=== PATIENT | male | born 1985 | race Caucasian/White ===

== ENCOUNTER 2017-11-10 07:32 | Outpatient (CLI) | payer OTHER, SELFPAY ==
--- NOTE | 2017-11-10 08:30 | DI.CT_ITS ---
SYMPTOMS/DIAGNOSIS: BURNING ABD PAIN BELOW UMBILICUS CT OF THE ABDOMEN AND PELVIS: Comparison is made with [id number]. Images were performed from the lung bases through the ischial tuberosities after IV and oral contrast. The lung bases are clear. The heart size is normal. The liver, gallbladder, spleen, pancreas, adrenals and kidneys appear normal. The appendix is well seen and appears normal. There is no bowel dilatation or acute inflammatory changes. There is fat seen within the submucosa of the colon and terminal ileum. The findings could be associated with a history of inflammatory bowel disease or may be a normal finding related to obesity. No umbilical or abdominal wall hernias are seen. There is no evidence of an inguinal hernia. The bladder and prostate are unremarkable. There are few scattered small mesenteric lymph nodes. No abnormally enlarged lymph nodes are identified. IMPRESSION: No acute abnormality.
[2017-11-10] MEDS: Omnipaque 350 MG/ML 50 ML BTL IJ (08:59)
[2017-11-10] MEDS: Breeza Beverage 473 ML BTL PO (09:00)
[2017-11-10] MEDS: Omnipaque 350 MG/ML 100 ML BTL IJ (09:02)
== END 2017-11-10 07:52 ==
PROVIDERS: PCP Nurse Practitioner; Visit Provider Nurse Practitioner
DX: R10.33 Periumbilical pain (principal)
CPT/HCPCS: 74177; J3490; Q9967

== ENCOUNTER 2017-11-11 15:11 | Outpatient (CLI) | payer OTHER, SELFPAY ==
[2017-11-11 15:42] LABS: HCT 44.4 % (40.0-50.0); Mean Corp. HGB Concentration 33.8 g/dL (32.0-36.0); Mean Corpuscular Hemoglobin 30.5 pg (27.0-33.0); Mean Corpuscular Volume 90.2 fL (80-95); Platelet Count 278 x1000/uL (130-400); RBC 4.92 m/cumm (4.50-6.00); RBC Distribution Width 12.3 % (11.8-14.1); White Blood Cell Count 7.25 k/cumm (4.4-10.8)
[2017-11-11 15:50] LABS: ALT 27 U/L (12-78); AST 11 U/L (15-37); Albumin 4.2 g/dL (3.4-5.0); Alkaline Phosphatase 58 U/L (46-116); BUN 11 mg/dL (7-18); Bilirubin, Total 0.3 mg/dL (0.2-1.0); CREATININE 0.97 mg/dL (0.70-1.30); Calcium 9.3 mg/dL (8.5-10.1); Chloride 101 mmol/L (98-107); Glucose 85 mg/dL (70-100); Lipase 84 U/L (73-393); Potassium 3.6 mmol/L (3.5-5.1); Sodium 137 mmol/L (136-145); Total Protein 8.3 g/dL (6.4-8.2)
== END 2017-11-11 15:31 ==
PROVIDERS: PCP Nurse Practitioner; Visit Provider Nurse Practitioner
DX: R10.9 Unspecified abdominal pain (principal)
CPT/HCPCS: 80053; 83690; 85027

== ENCOUNTER 2018-02-10 10:51 | Day surgery (SDC) | payer OTHER, SELFPAY ==
[2018-02-10 11:07] VITALS: BP 121/77; PULSE 98; RESP 18; TEMP 36.6; O2SAT 99
[2018-02-10] MEDS: Lactated Ringers 1,000 ML 30 ML IV ×2 (11:37→13:54)
--- NOTE | 2018-02-10 13:06 | STOM_PTH ---
PATIENT: Oskar Cruz LOC: [facility] U#:[id number] AGE/SX: 32/M ROOM: RE02/10/[address]: Inocencio Sewell DO : 1985 BED: DIS: 02/10/2018 SPEC #: [id number] RECD: 02/10/18 16:05 STATUS: MAULIK [facility] #: [id number] AMARI: 02/10/18 13:[address]: Inocencio Sewell DEPT: Surgical Specimen RECD BY: Roberta Gregory ENTERED: 02/10/18 16:09 SP TYPE: STOMACH OTHR DR: Casie Chandler APRN Tissues: 1 - BIOPSY BOWEL 2 - STOMACH BIOPSY 3 - BIOPSY BOWEL 4 - BIOPSY BOWEL 5 - BIOPSY BOWEL Procedures: GROSS AND MICRO LEVEL 4 IMMUNOPEROXIDASE STAIN Comments: [id number]
--- NOTE | 2018-02-10 14:01 | ENDO_ITS ---
Date of service: 02/10/18 Time of Service: 14:00 Endoscopy Report DATE OF PROCEDURE: 02/10/18 PRE-OP DIAGNOSIS: Abdominal pain with nausea, vomiting, and weight loss POST-OP DIAGNOSIS: other PROCEDURE: 1. Esophagogastroduodenoscopy with biopsies and cold forceps 2. Colonoscopy with biopsy by cold forceps SURGEON: Inocencio Sewell ANESTHESIA: MAC (Jerrica Higgins CRNA; ASA 2 Mallampati class II) ESTIMATED BLOOD LOSS: 2 PATHOLOGY: other (1. Duodenal biopsies 2. Gastric antral biopsies 3. Random terminal ileal biopsies 4. Random colon biopsies 5. Random rectal biopsies) COMPLICATIONS: None DISPOSITION: same day INDICATIONS: 32-year-old male referred for about three month's worth of abdominal pain. Reports a dull mostly lower abdomen pain that is intermittent, and associated with nausea and vomiting. He also reports a change in bowel habits from having regular bowel movement daily to now 1 every 5 days, or several bowel movements every 5 days. He describes the abdominal pain is dull achy. The nausea usually precedes the vomiting. He has also noted a weight loss over the last year. PREP: Miralax/Dulcolax PROCEDURE START TIME: 14:25 PROCEDURE END TIME: 14:45 COLONOSCOPY RETRACTION TIME: 15 FINDINGS: In examining the upper gastrointestinal tract from the oropharynx to the third portion duodenum, the duodenum appeared to have blunted microvilli present with some contact friability of the tissue. There were shallow ulcerations seen in the gastric antrum. The Z line appeared normal. In watching the soft his contract appears that he has a small sliding hernia 1-2 cm present. The colonoscopy exam of the colon from cecum to anus, and included a small portion of the terminal ileum. No gross abnormalities were seen during the colonoscopy random biopsies were taken from the terminal ileum, colon, and rectum. PROCEDURE DESCRIPTION: The patient was brought to the procedure room. Monitoring for telemetry, end- tidal CO2, O2 saturation, blood pressure were applied. An appropriate timeout was taken reviewing the patient's identification, allergies, medications,and procedure. Sedation was titrated for effect by the BEVERAGE INSPECTION MACHINE TENDER. The upper endoscopy was performed first. An Olympus variable stiffness endoscope was advanced from the oropharynx to the third portion of the duodenum without difficulty. The scope was then withdrawn in circumferential manner from the duodenum back to the oropharynx. In performing withdrawal of the scope , the duodenum appeared to have some contact friability along with blunting of the microvilli. Multiple biopsies were taken from the duodenum. The scope was then withdrawn into the stomach the gastric antrum appeared to have several ulcerations present and multiple biopsies were taken which were submitted for pathology. The scope was then retroflexed in the stomach lesser curvature, greater curvature, anterior, and posterior surfaces all appear grossly normal. The scope was then withdrawn to the GE junction, and Z line appeared normal. There was a small sliding hiatal hernia noted 1-2 cm. I withdrew the scope through the remainder of the esophagus all which appear grossly normal. Scope was then withdrawn terminating the upper endoscopy. The patient was then repositioned for colonoscopy. Sedation was titrated for effect again. Once adequate sedation was achieved, I performed a inspection of the external perineum, and a digitial rectal examination. No significant external abnormalities were noted. On digital rectal examination, there was no blood, no masses, good rectal tone. I advanced the colonoscope from the anus to the cecum under direct visualization. The cecum was identified by the ileal-cecal valve, and the appendiceal orifice. The terminal ileum was intubated for approximately 15-20 cm, and appeared grossly normal. Biopsies were then taken from the terminal ileum, randomly. Scope was then withdrawn back into the cecum. The scope then was withdrawn in circumferential manner from the cecum to the rectum. Random biopsies were taken throughout the colon and submitted for pathology. No gross abnormalites were noted in the colon. The scope was then withdrawn into the rectum, and retroflexed. Again, random biopsies were taken throughout the rectum which was subsequently submitted for pathology. No gross abnormalities were noted of the rectum or anorectal junction. The scope was then withdrawn, terminating the procedure. There were no complications during the procedure, and the patient tolerated the procedure well. The patient was returned to the day surgery recovery area in good condition. Plan: We will start Oskar on omeprazole today while awaiting pathology results. Further recommendations are pending pathology
[2018-02-10 14:28] VITALS: BP 109/73; PULSE 52; RESP 16; TEMP 37; O2SAT 97
--- NOTE | 2018-02-10 14:41 | PDOC.DSDIS_ITS ---
Discharge Plan Disposition Patient Disposition: HOME Condition: Good Discharge Details Reason For Visit: ABDOMINAL PAIN / N/V Attending Provider: Inocencio Sewell Primary Care Provider: Casie Chandler Home Meds and New Rx's Prescriptions: New omeprazole 40 mg capsule,delayed release(DR/EC) 40 mg PO DAILY Qty: 30 RF: 3 Continue gabapentin 800 mg Tablet 800 mg PO HS RF: 0 gabapentin 800 mg tablet 400 mg PO DAILY RF: 0 Discontinued lorazepam 1 mg tablet 1 mg PO BID PRN (Reason: fear flying) Qty: 5 RF: 0 lorazepam 1 mg tablet 1 mg PO ONCE Qty: 1 RF: 0 polyethylene glycol 3350 [Miralax] 17 gram/dose powder 255 gm PO ONCE Qty: 255 RF: 0 bisacodyl [Dulcolax (bisacodyl)] 5 mg tablet,delayed release (DR/EC) 10 mg PO BID Qty: 4 RF: 0 Discharge Instructions Instructions: Colonoscopy (DC), Upper Endoscopy (DC) Stand Alone Forms: Colonoscopy Post Instructions, DSU Post EGD Instructions, Ignacio Naik (DSU) Activity:: Activity as Tolerated Diet:: As Tolerated Discharge Orders Discharge Orders: Discharge Order (Routine); Ordered 02/10/18 Ordered By: Inocencio Sewell DS: Diagnosis Discharge Diagnosis (1) Abdominal pain: Status: Acute Asessment and Plan: Upper and lower endoscopy performed: Endoscopy Report DATE OF PROCEDURE: 02/10/18 PRE-OP DIAGNOSIS: Abdominal pain with nausea, vomiting, and weight loss POST-OP DIAGNOSIS: other PROCEDURE: 1. Esophagogastroduodenoscopy with biopsies and cold forceps 2. Colonoscopy with biopsy by cold forceps SURGEON: Inocencio Sewell ANESTHESIA: MAC (Jerrica Higgins CRNA; ASA 2 Mallampati class II) ESTIMATED BLOOD LOSS: 2 PATHOLOGY: 1. Duodenal biopsies 2. Gastric antral biopsies 3. Random terminal ileal biopsies 4. Random colon biopsies 5. Random rectal biopsies COMPLICATIONS: None DISPOSITION: same day INDICATIONS: 32-year-old male referred for about three month's worth of abdominal pain. Reports a dull mostly lower abdomen pain that is intermittent, and associated with nausea and vomiting. He also reports a change in bowel habits from having regular bowel movement daily to now 1 every 5 days, or several bowel movements every 5 days. He describes the abdominal pain is dull achy. The nausea usually precedes the vomiting. He has also noted a weight loss over the last year. PREP: Miralax/Dulcolax PROCEDURE START TIME: 14:25 PROCEDURE END TIME: 14:45 COLONOSCOPY RETRACTION TIME: 15 FINDINGS: In examining the upper gastrointestinal tract from the oropharynx to the third portion duodenum, the duodenum appeared to have blunted microvilli present with some contact friability of the tissue. There were shallow ulcerations seen in the gastric antrum. The Z line appeared normal. In watching the soft his contract appears that he has a small sliding hernia 1-2 cm present. The colonoscopy exam of the colon from cecum to anus, and included a small portion of the terminal ileum. No gross abnormalities were seen during the colonoscopy random biopsies were taken from the terminal ileum, colon, and rectum. PROCEDURE DESCRIPTION: The patient was brought to the procedure room. Monitoring for telemetry, end- tidal CO2, O2 saturation, blood pressure were applied. An appropriate timeout was taken reviewing the patient's identification, allergies, medications,and procedure. Sedation was titrated for effect by the CLUBHOUSE MANAGER. The upper endoscopy was performed first. An Olympus variable stiffness endoscope was advanced from the oropharynx to the third portion of the duodenum without difficulty. The scope was then withdrawn in circumferential manner from the duodenum back to the oropharynx. In performing withdrawal of the scope , the duodenum appeared to have some contact friability along with blunting of the microvilli. Multiple biopsies were taken from the duodenum. The scope was then withdrawn into the stomach the gastric antrum appeared to have several ulcerations present and multiple biopsies were taken which were submitted for pathology. The scope was then retroflexed in the stomach lesser curvature, greater curvature, anterior, and posterior surfaces all appear grossly normal. The scope was then withdrawn to the GE junction, and Z line appeared normal. There was a small sliding hiatal hernia noted 1-2 cm. I withdrew the scope through the remainder of the esophagus all which appear grossly normal. Scope was then withdrawn terminating the upper endoscopy. The patient was then repositioned for colonoscopy. Sedation was titrated for effect again. Once adequate sedation was achieved, I performed a inspection of the external perineum, and a digitial rectal examination. No significant external abnormalities were noted. On digital rectal examination, there was no blood, no masses, good rectal tone. I advanced the colonoscope from the anus to the cecum under direct visualization. The cecum was identified by the ileal-cecal valve, and the appendiceal orifice. The terminal ileum was intubated for approximately 15-20 cm, and appeared grossly normal. Biopsies were then taken from the terminal ileum, randomly. Scope was then withdrawn back into the cecum. The scope then was withdrawn in circumferential manner from the cecum to the rectum. Random biopsies were taken throughout the colon and submitted for pathology. No gross abnormalites were noted in the colon. The scope was then withdrawn into the rectum, and retroflexed. Again, random biopsies were taken throughout the rectum which was subsequently submitted for pathology. No gross abnormalities were noted of the rectum or anorectal junction. The scope was then withdrawn, terminating the procedure. There were no complications during the procedure, and the patient tolerated the procedure well. The patient was returned to the day surgery recovery area in good condition. Plan: We will start Oskar on omeprazole today while awaiting pathology results. Further recommendations are pending pathology
== END 2018-02-10 14:45 | disposition home or self-care (01) ==
PROVIDERS: PCP Nurse Practitioner; Visit Provider Surgery
PROC: (CPT 43239; principal; 2018-02-10 12:45)
DX: R10.9 Unspecified abdominal pain (principal); R11.2 Nausea with vomiting, unspecified; R63.4 Abnormal weight loss; K29.60 Other gastritis without bleeding; K62.89 Other specified diseases of anus and rectum; K44.9 Diaphragmatic hernia without obstruction or gangrene
CPT/HCPCS: 43239; 45380; 88305; 88361

== ENCOUNTER 2018-03-16 12:37 | Outpatient (CLI) | payer OTHER, SELFPAY ==
[2018-03-20 13:54] LABS: TB Interpretation Negative (NEGAT); TB1 Ag minus Nil 0.03 IU/mL; TB2 Ag minus Nil 0.01 IU/mL
== END 2018-03-16 12:57 ==
PROVIDERS: PCP Nurse Practitioner; Visit Provider Surgery
DX: K29.60 Other gastritis without bleeding (principal)
CPT/HCPCS: 36415; 86480

== ENCOUNTER 2018-04-27 09:38 | Outpatient (CLI) | payer OTHER, SELFPAY ==
[2018-04-27 13:18] LABS: Abs Immature Grans 0.02 k/cumm (0.0-0.09); Absolute Basophil Count 0.03 k/cumm (0.0-0.2); Absolute Eosinophil Count 0.06 k/cumm (0.0-0.7); Absolute Lymphocyte Count 2.28 k/cumm (1.2-3.4); Absolute Monocyte Count 0.64 k/cumm (0.11-0.7); Absolute Neutrophil Count 7.55 k/cumm (1.2-6.7); Basophils % 0.3; Eosinophils % 0.6; HCT 45.2 % (40.0-50.0); HGB 15.5 g/dL (13.5-17.5); Immature Grans % 0.2; Lymphocytes % 21.6; Mean Corp. HGB Concentration 34.3 g/dL (32.0-36.0); Mean Corpuscular Hemoglobin 30.6 pg (27.0-33.0); Mean Corpuscular Volume 89.3 fL (80-95); Mean Platelet Volume 9.3 fL (8.0-11.0); Neutrophils % 71.3; Platelet Count 281 x1000/uL (130-400); RBC 5.06 m/cumm (4.50-6.00); RBC Distribution Width 12.5 % (11.8-14.1); White Blood Cell Count 10.58 k/cumm (4.4-10.8)
[2018-04-27 14:36] LABS: ALT 19 U/L (12-78); AST 13 U/L (15-37); Albumin 4.4 g/dL (3.4-5.0); Alkaline Phosphatase 51 U/L (46-116); Bilirubin, Direct 0.14 mg/dL (0.00-0.20); Bilirubin, Total 0.5 mg/dL (0.2-1.0); C-Reactive Protein 0.14 mg/dL (0.0-0.3); Total Protein 8.1 g/dL (6.4-8.2)
== END 2018-04-27 09:58 ==
PROVIDERS: PCP Nurse Practitioner; Visit Provider Internal Medicine
DX: K50.00 Crohn's disease of small intestine without complications (principal)
CPT/HCPCS: 36415; 80076; 85025; 86140

== ENCOUNTER 2018-05-23 01:42 | Outpatient (RCR) | payer OTHER, SELFPAY ==
[2018-05-10 12:38] LABS: Abs Immature Grans 0.01 k/cumm (0.0-0.09); Absolute Basophil Count 0.03 k/cumm (0.0-0.2); Absolute Eosinophil Count 0.11 k/cumm (0.0-0.7); Absolute Neutrophil Count 5.93 k/cumm (1.2-6.7); Basophils % 0.3; Eosinophils % 1.2; HCT 45.6 % (40.0-50.0); HGB 15.6 g/dL (13.5-17.5); Immature Grans % 0.1; Lymphocytes % 26.4; Mean Corp. HGB Concentration 34.2 g/dL (32.0-36.0); Mean Corpuscular Hemoglobin 30.6 pg (27.0-33.0); Mean Corpuscular Volume 89.4 fL (80-95); Mean Platelet Volume 9.5 fL (8.0-11.0); Monocytes % 6.6; Neutrophils % 65.4; Platelet Count 284 x1000/uL (130-400); RBC Distribution Width 12.7 % (11.8-14.1); White Blood Cell Count 9.08 k/cumm (4.4-10.8)
[2018-05-10 12:48] LABS: ALT 25 U/L (12-78); AST 12 U/L (15-37); Albumin 4.4 g/dL (3.4-5.0); Alkaline Phosphatase 54 U/L (46-116); Bilirubin, Direct 0.13 mg/dL (0.00-0.20); Bilirubin, Total 0.5 mg/dL (0.2-1.0); C-Reactive Protein 0.12 mg/dL (0.0-0.3)
[2018-05-23 09:55] LABS: Abs Immature Grans 0.02 k/cumm (0.0-0.09); Absolute Basophil Count 0.04 k/cumm (0.0-0.2); Absolute Eosinophil Count 0.26 k/cumm (0.0-0.7); Absolute Lymphocyte Count 2.01 k/cumm (1.2-3.4); Absolute Monocyte Count 1.02 k/cumm (0.11-0.7); Absolute Neutrophil Count 5.66 k/cumm (1.2-6.7); Basophils % 0.4; Eosinophils % 2.9; HCT 43.7 % (40.0-50.0); HGB 14.9 g/dL (13.5-17.5); Immature Grans % 0.2; Lymphocytes % 22.3; Mean Corp. HGB Concentration 34.1 g/dL (32.0-36.0); Mean Corpuscular Volume 90.9 fL (80-95); Mean Platelet Volume 9.4 fL (8.0-11.0); Monocytes % 11.3; Neutrophils % 62.9; Platelet Count 263 x1000/uL (130-400); RBC 4.81 m/cumm (4.50-6.00); RBC Distribution Width 12.8 % (11.8-14.1); White Blood Cell Count 9.01 k/cumm (4.4-10.8)
[2018-05-23 10:17] LABS: ALT 27 U/L (12-78); AST 11 U/L (15-37); Albumin 4.2 g/dL (3.4-5.0); Alkaline Phosphatase 45 U/L (46-116); Bilirubin, Direct 0.16 mg/dL (0.00-0.20); Bilirubin, Total 0.5 mg/dL (0.2-1.0); C-Reactive Protein 0.12 mg/dL (0.0-0.3); Total Protein 7.6 g/dL (6.4-8.2)
== END 2018-06-04 23:59 | disposition home or self-care (01) ==
LOC: INF 01:42
PROVIDERS: PCP Nurse Practitioner; Visit Provider Internal Medicine
DX: K50.00 Crohn's disease of small intestine without complications (principal)
CPT/HCPCS: 36415; 80076; 85025; 86140

== ENCOUNTER 2018-06-27 11:30 | Outpatient (RCR) | payer OTHER, SELFPAY ==
[2018-06-07 12:01] LABS: Abs Immature Grans 0.01 k/cumm (0.0-0.09); Absolute Basophil Count 0.02 k/cumm (0.0-0.2); Absolute Eosinophil Count 0.16 k/cumm (0.0-0.7); Absolute Monocyte Count 0.66 k/cumm (0.11-0.7); Absolute Neutrophil Count 5.92 k/cumm (1.2-6.7); Basophils % 0.2; Eosinophils % 1.7; HCT 45.7 % (40.0-50.0); HGB 15.7 g/dL (13.5-17.5); Immature Grans % 0.1; Lymphocytes % 28.5; Mean Corp. HGB Concentration 34.4 g/dL (32.0-36.0); Mean Corpuscular Hemoglobin 30.5 pg (27.0-33.0); Mean Corpuscular Volume 88.7 fL (80-95); Mean Platelet Volume 9.5 fL (8.0-11.0); Neutrophils % 62.5; Platelet Count 269 x1000/uL (130-400); RBC 5.15 m/cumm (4.50-6.00); RBC Distribution Width 12.4 % (11.8-14.1); White Blood Cell Count 9.47 k/cumm (4.4-10.8)
[2018-06-07 12:25] LABS: ALT 21 U/L (12-78); AST 10 U/L (15-37); Albumin 4.5 g/dL (3.4-5.0); Alkaline Phosphatase 55 U/L (46-116); Bilirubin, Direct 0.15 mg/dL (0.00-0.20); Bilirubin, Total 0.5 mg/dL (0.2-1.0); Total Protein 8.4 g/dL (6.4-8.2)
[2018-06-21 12:43] LABS: Abs Immature Grans 0.01 k/cumm (0.0-0.09); Absolute Basophil Count 0.03 k/cumm (0.0-0.2); Absolute Eosinophil Count 0.09 k/cumm (0.0-0.7); Absolute Lymphocyte Count 2.19 k/cumm (1.2-3.4); Absolute Monocyte Count 0.75 k/cumm (0.11-0.7); Absolute Neutrophil Count 4.35 k/cumm (1.2-6.7); Basophils % 0.4; Eosinophils % 1.2; HCT 41.8 % (40.0-50.0); HGB 14.4 g/dL (13.5-17.5); Immature Grans % 0.1; Lymphocytes % 29.5; Mean Corp. HGB Concentration 34.4 g/dL (32.0-36.0); Mean Corpuscular Hemoglobin 30.4 pg (27.0-33.0); Mean Corpuscular Volume 88.4 fL (80-95); Mean Platelet Volume 10.2 fL (8.0-11.0); Monocytes % 10.1; Neutrophils % 58.7; Platelet Count 271 x1000/uL (130-400); RBC 4.73 m/cumm (4.50-6.00); RBC Distribution Width 12.4 % (11.8-14.1); White Blood Cell Count 7.42 k/cumm (4.4-10.8)
[2018-06-21 13:00] LABS: ALT 17 U/L (12-78); AST 9 U/L (15-37); Albumin 4.3 g/dL (3.4-5.0); Alkaline Phosphatase 52 U/L (46-116); Bilirubin, Direct 0.12 mg/dL (0.00-0.20); Bilirubin, Total 0.4 mg/dL (0.2-1.0); C-Reactive Protein 0.25 mg/dL (0.0-0.3); Total Protein 7.7 g/dL (6.4-8.2)
[2018-06-27 12:35] LABS: Abs Immature Grans 0.02 k/cumm (0.0-0.09); Absolute Basophil Count 0.03 k/cumm (0.0-0.2); Absolute Eosinophil Count 0.11 k/cumm (0.0-0.7); Absolute Lymphocyte Count 2.28 k/cumm (1.2-3.4); Absolute Monocyte Count 0.79 k/cumm (0.11-0.7); Absolute Neutrophil Count 5.16 k/cumm (1.2-6.7); Basophils % 0.4; Eosinophils % 1.3; HCT 42.7 % (40.0-50.0); HGB 14.4 g/dL (13.5-17.5); Immature Grans % 0.2; Lymphocytes % 27.2; Mean Corp. HGB Concentration 33.7 g/dL (32.0-36.0); Mean Corpuscular Hemoglobin 30.1 pg (27.0-33.0); Mean Corpuscular Volume 89.1 fL (80-95); Mean Platelet Volume 10.3 fL (8.0-11.0); Monocytes % 9.4; Neutrophils % 61.5; Platelet Count 284 x1000/uL (130-400); RBC 4.79 m/cumm (4.50-6.00); RBC Distribution Width 12.4 % (11.8-14.1); White Blood Cell Count 8.39 k/cumm (4.4-10.8)
[2018-06-27 12:41] LABS: ALT 20 U/L (12-78); AST 11 U/L (15-37); Albumin 4.1 g/dL (3.4-5.0); Alkaline Phosphatase 51 U/L (46-116); Bilirubin, Direct 0.07 mg/dL (0.00-0.20); Bilirubin, Total 0.3 mg/dL (0.2-1.0); C-Reactive Protein 0.16 mg/dL (0.0-0.3); Total Protein 7.3 g/dL (6.4-8.2)
[2018-06-27 13:15] LABS: ESR 11 MM/HR (0-15)
[2018-06-29 18:16] LABS: Adalimumab QN with Reflex Ab 9.2 mcg/mL
== END 2018-07-04 23:59 | disposition home or self-care (01) ==
LOC: INF 11:30
PROVIDERS: PCP Nurse Practitioner; Visit Provider Internal Medicine
DX: K50.00 Crohn's disease of small intestine without complications (principal)
CPT/HCPCS: 36415; 80076; 83520; 85652; 85025; 86140

== ENCOUNTER 2018-07-08 13:32 | Emergency (ER) | payer OTHER, SELFPAY ==
[2018-07-08] VITALS (38 sets, daily range): BP systolic 109–124; BP diastolic 59–71; PULSE 57–77; RESP 8–29; TEMP 37; O2SAT 93–100
[2018-07-08] MEDS: LORazepam 1 MG TAB (14:15)
--- NOTE | 2018-07-08 14:17 | ED.GENADUL_ITS ---
Discharge Plan Disposition Patient Disposition: HOME Condition: Improving Discharge Details Chief Complaint: Chest Pain Clinical Impression: Chest pain, atypical Primary Care Provider: Casie Chandler ED Provider: Charlie Metcalf Home Meds and New Rx's Prescriptions: Continued gabapentin 800 mg tablet 800 mg PO BID Qty: 180 RF: 2 omeprazole 40 mg capsule,delayed release(DR/EC) 40 mg PO DAILY Qty: 30 RF: 3 hydroxyzine HCl 10 mg tablet 20 mg PO Q6H PRN (Reason: anxiety) Qty: 60 RF: 0 amoxicillin-pot clavulanate [Augmentin] 875-125 mg tablet 1 tab PO Q12H Qty: 14 RF: 0 Humira 40 mg/0.8 mL syringe kit 40 mg SC Q14D Qty: 2 RF: 5 Discharge Instructions Instructions: Chest Pain (ED) Additional Instructions: Please continue to take your daily prescribed medications as directed and feel free to return to the emergency department for any new or significant worsening of symptoms or change in your symptoms. Otherwise follow-up with your primary care provider for reassessment and possible further outpatient testing which may include cardiac monitoring or stress test. Referrals: Casie Chandler NP [Primary Care Provider] - (Call the office for arrangement of follow-up appointment if not improving.) Discharge Data Discharge Date/Time-TO BE ENTERED AT DEPARTURE: 07/08/18 18:22 Medical Decision Making <Nikko Ramírez MD - Last Filed: 07/08/18 14:17> ECG Data Attestation: I personally reviewed and interpreted this ECG (s) as follows: Prior ECG tracings: not available for review Interpretation: normal sinus rhythm, rate of 92, pr 152, qtc 463 <MARÍA ELENA Fu - Last Filed: 07/08/18 16:08> This is a nontoxic-appearing 32-year-old male presenting with left-sided chest pain and left shoulder pain since 8 AM this morning. Vitals reflect a slight tachypnea. BP and pulse rate stable. Low HEART of two (features and family history of heart disease). EKG shows normal sinus rhythm with a rate of 72. No ectopy or ST changes. Initial blood test reveal a negative troponin and d- dimer. Discussed findings with the patient and recommend 3-hour serial troponin for which she is agreed. <Charlei Metcalf NP - Last Filed: 07/08/18 18:33> Patient presenting to the emergency department for complaint of chest pain. Patient was signed out to me pending second troponin. Patient had improvement o f symptoms after benzodiazepine. Patient reassessed and continued to state improvement of symptoms after review of second negative troponin. Given 2 neg troponins, negative d-dimer, unremarkable labs, no acute findings on chest x- ray, I feel the patient is able to be safely discharged for follow-up with primary care provider for reassessment and possible scheduling of outpatient stress testing and/or cardiac monitoring given the patient does state occasional palpitations. Return precautions discussed. After discussion of diagnosis and plan of care patient has no further needs, questions, or concerns and states clear understanding to return to the emergency department for any worsening symptoms. Lab Data Lab results reviewed: Yes I reviewed the patient's lab results. HPI <Nikko Ramírez MD - Last Filed: 07/08/18 14:17> General Date/Time Provider Initiated Documentation: 07/08/18 13:42 . Related Data Home Medications Medication Instructions Recorded Confirmed gabapentin 800 mg tablet 800 mg PO BID #180 tab 04/17/18 07/08/18 omeprazole 40 mg capsule,delayed 40 mg PO DAILY #30 cap 06/12/18 07/08/18 release hydroxyzine HCl 10 mg tablet 20 mg PO Q6H PRN #60 tab 06/29/18 07/08/18 amoxicillin 875 mg-potassium 1 tab PO Q12H #14 tab 07/06/18 07/08/18 clavulanate 125 mg tablet adalimumab 40 mg/0.8 mL 40 mg SC Q14D #2 syringe 07/07/18 07/08/18 subcutaneous syringe kit Previous Rx's Medication Instructions Recorded gabapentin 800 mg tablet 800 mg PO BID #180 tab 04/17/18 omeprazole 40 mg capsule,delayed 40 mg PO DAILY #30 cap 06/12/18 release hydroxyzine HCl 10 mg tablet 20 mg PO Q6H PRN #60 tab 06/29/18 amoxicillin 875 mg-potassium 1 tab PO Q12H #14 tab 07/06/18 clavulanate 125 mg tablet adalimumab 40 mg/0.8 mL 40 mg SC Q14D #2 syringe 07/07/18 subcutaneous syringe kit Allergies Allergy/AdvReac Type Severity Reaction Status Date / Time No Known Allergies Allergy Verified 07/08/18 13:50 <MARÍA ELENA Fu - Last Filed: 07/08/18 16:08> HPI Narrative: Patient is a 32-year-old male with a significant past medical history of anxiety, Crohn's/colitis, GERD, previous IV drug use, 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 Symptoms at that time self resolved. He woke up this morning and noted return of symptoms along with associated shortness of breath and palpitations. Symptoms today started around 8 AM. He denies any sputum production. No calf pain or swelling. No nausea vomiting. He reports a chronic intermittent left arm numbness secondary to IV drug use. His chest pain related arm pain feels different than baseline arm discomfort. No prior cardiac history. He is on immunosuppression therapy taking Humira for his Crohn's to disease. Patient is on day #2 of Augmentin for a superficial right calf abscess. Seen by surgery outpatient 2 days ago. Symptoms seem to be improving. He denies any fevers or systemic symptoms General Stated Complaint: Chest Pain MARIA ESTHER: 2 <MARÍA ELENA Fu - Last Filed: 07/08/18 16:08> Constitutional Denies chills, Denies fatigue, Denies fever(s), Denies lethargy, Denies malaise, Denies night sweats and Denies weakness Eyes Denies loss of vision ENT Denies dizziness and Denies neck pain Cardiovascular Reports chest pain, Reports chest pain at rest, Denies diaphoresis, Denies syncope, Denies pedal edema, Denies edema, Reports palpitations, Reports dyspnea and Reports dyspnea on exertion Respiratory Denies cough, Denies pain on inspiration, Denies pain with cough, Reports dyspnea, Reports dyspnea on exertion and Denies wheezing Gastrointestinal Denies melena, Denies change in stool character, Denies heartburn and Denies vomiting Genitourinary Denies dysuria Musculoskeletal Denies back pain, Denies muscle cramps, Denies muscle weakness and Denies neck pain Integumentary/Breasts Reports lesions (right calf) Neurologic Denies dizziness, Denies syncope, Denies loss of vision and Denies weakness Psychiatric Reports anxiety Endocrine Denies fatigue and Reports palpitations Hematologic/Lymphatic Denies easy bleeding, Denies easy bruising and Denies lymphadenopathy Allergic/Immunologic Denies wheezing PFSH <Nikko Ramírez MD - Last Filed: 07/08/18 14:17> Surgical History History of esophagogastroduodenoscopy (EGD) (Acute 02/10/18) H/O colonoscopy (Resolved 02/10/18) Family History Mother Alcohol abuse Father Substance abuse Social History Smoking/Tobacco Use Status: Former Tobacco Use Quit Date: 03/08/17 Alcohol Intake: current Alcohol Intake frequency: 0-2 drinks per day Drug use: Occasionally Substance use type: does not use Housing: apartment current occupation: Supervisor [employer] Pets and animals: Yes (1) Pets and animals: dog(s) Duration: > 90 minutes/day Frequency: 3-4 times per week Do you feel safe in your relationship?: Yes <MARÍA ELENA Fu - Last Filed: 07/08/18 16:08> Const General: cooperative, healthy appearing and anxious Nutritional Appearance: average body habitus Orientation: alert, awake and oriented x3 HENMT Head: normal to inspection General nose exam: external nose normal Teeth and gingiva: dentition normal Eyes General: appearance normal, both eyes and all related structures Sclera: sclerae normal Cornea: corneas normal Pupils: PERRL EOM: EOM intact bilaterally Neck Neck: normal visual inspection Chest Chest: normal inspection of the chest and normal palpation of entire chest wall Resp Effort & Inspection: normal respiratory effort and able to speak in complete s entences Auscultation: clear to auscultation bilaterally Cardio Jugular venous pressure: no JVD Rate: regular rate Rhythm: regular rhythm Heart Sounds: S1 normal and S2 normal Pulses: normal peripheral pulses GI Inspection: normal to inspection Palpation: soft, no hepatosplenomegaly and nontender Back/Spine/Pelvis Back: no CVA tenderness Thoracic/Lumbar Spine: thoracic and lumbar spine normal to inspection Skin Lesions: lesion noted (Small, roughly 5 mm diameter abscess with overlying erythema of the RLE) Neuro General: alert, awake, oriented x3, oriented, no focal motor deficits and CN's II-XI intact bilaterally Extrem General: normal to inspection, no pedal edema and no calf tenderness bilaterally <MARÍA ELENA Fu - Last Filed: 07/08/18 16:08> Vital Signs Temperature 37 C 07/08/18 13:45 Pulse 74 07/08/18 13:45 Respiratory Rate 29 H 07/08/18 13:45 Blood Pressure 124/69 07/08/18 13:45 Pulse Oximetry 98 07/08/18 13:45 Temperature 37 C 07/08/18 13:45 Temperature Source Skin 07/08/18 13:45 Pulse 74 07/08/18 13:45 Respiratory Rate 29 H 07/08/18 13:45 Respiratory Effort Non-Labored 07/08/18 13:45 Blood Pressure 124/69 07/08/18 13:45 Blood Pressure Position Supine 07/08/18 13:45 Pulse Oximetry 98 07/08/18 13:45 Oxygen Delivery Method Room Air 07/08/18 13:45 Oxygen Flow Rate 0 07/08/18 13:45 Pain Level 6 07/08/18 13:45 Sign Out <Nikko Ramírez MD - Last Filed: 07/08/18 14:17> Sign Out Data: Sign Out Comment: Signed out to Dmitry Metcalf NP. Pending second troponin. See his note for final disposition. Last updated by Dane Menezes PA at 07/08/18 16:03
[2018-07-08 14:34] LABS: Abs Immature Grans 0.01 k/cumm (0.0-0.09); Absolute Basophil Count 0.03 k/cumm (0.0-0.2); Absolute Lymphocyte Count 2.56 k/cumm (1.2-3.4); Absolute Monocyte Count 0.76 k/cumm (0.11-0.7); Absolute Neutrophil Count 3.84 k/cumm (1.2-6.7); Basophils % 0.4; Eosinophils % 1.4; HCT 40.7 % (40.0-50.0); HGB 14.2 g/dL (13.5-17.5); Immature Grans % 0.1; Lymphocytes % 35.1; Mean Corp. HGB Concentration 34.9 g/dL (32.0-36.0); Mean Corpuscular Hemoglobin 30.9 pg (27.0-33.0); Mean Corpuscular Volume 88.5 fL (80-95); Monocytes % 10.4; Neutrophils % 52.6; Platelet Count 279 x1000/uL (130-400); RBC Distribution Width 12.4 % (11.8-14.1)
--- NOTE | 2018-07-08 14:42 | DI.RAD_ITS ---
SYMPTOM/DIAGNOSIS: CHEST PAIN, SOB PA AND LATERAL CHEST: The heart is normal in size. The lungs are clear. The mediastinal structures and pleura appear intact. CONCLUSION: Normal chest.
[2018-07-08 14:48] LABS: ALT 24 U/L (12-78); AST 13 U/L (15-37); Albumin 4.1 g/dL (3.4-5.0); Alkaline Phosphatase 53 U/L (46-116); Anion Gap 10.6 mmol/L (3-11); BUN 24 mg/dL (7-18); Bilirubin, Total 0.2 mg/dL (0.2-1.0); CO2 25.4 mmol/L (21.0-32.0); CREATININE 0.93 mg/dL (0.70-1.30); Chloride 107 mmol/L (98-107); Glucose 92 mg/dL (70-100); Magnesium 1.9 mg/dL (1.8-2.4); Potassium 4.2 mmol/L (3.5-5.1); Sodium 143 mmol/L (136-145); Total Protein 7.5 g/dL (6.4-8.2); Troponin I 0.02 ng/mL (0.00-0.06)
[2018-07-08 15:02] LABS: D-Dimer 102 ng/mlFEU (<500)
--- NOTE | 2018-07-08 15:06 | DI.VRAD_ITS ---
EXAM: XR Chest, 2 Views EXAM DATE/TIME: 07/08/2018 2:30 PM CLINICAL HISTORY: 32 years old, male; Signs and symptoms; Shortness of breath; Patient HX: Chest pain and difficulty breathing TECHNIQUE: Imaging protocol: XR of the chest, 2 views. COMPARISON: CR RIGHT RIBS TO INCLUDE CXR 08/22/2013 6:45 PM FINDINGS: The lung gandara are clear bilaterally. No focal pulmonary consolidation is present. The cardiac silhouette is within normal limits. The costophrenic angles are sharp. The bony structures appear unremarkable. IMPRESSION: No evidence of acute cardiopulmonary disease. Dictated and Authenticated by: Fermin Haywood MD. Ordering:JASMINA Vela MD
[2018-07-08 17:56] LABS: Troponin I 0.02 ng/mL (0.00-0.06)
== END 2018-07-08 18:22 | disposition home or self-care (01) ==
PROVIDERS: Physician Assistant; Emergency Provider Nurse Practitioner Family; PCP Nurse Practitioner
DX: R07.89 Other chest pain (principal); M25.512 Pain in left shoulder; Z87.891 Personal history of nicotine dependence
CPT/HCPCS: 36415; 80053; 93005; 96374; 99285; 71046; 83735; 84484; 85025; 85379; 93010

== ENCOUNTER 2018-08-02 01:50 | Outpatient (RCR) | payer OTHER, SELFPAY ==
[2018-07-05 13:54] LABS: Abs Immature Grans 0.01 k/cumm (0.0-0.09); Absolute Basophil Count 0.03 k/cumm (0.0-0.2); Absolute Eosinophil Count 0.04 k/cumm (0.0-0.7); Absolute Lymphocyte Count 2.08 k/cumm (1.2-3.4); Absolute Monocyte Count 0.76 k/cumm (0.11-0.7); Absolute Neutrophil Count 5.11 k/cumm (1.2-6.7); Basophils % 0.4; Eosinophils % 0.5; HCT 42.5 % (40.0-50.0); HGB 14.6 g/dL (13.5-17.5); Immature Grans % 0.1; Lymphocytes % 25.9; Mean Corp. HGB Concentration 34.4 g/dL (32.0-36.0); Mean Corpuscular Hemoglobin 30.4 pg (27.0-33.0); Mean Corpuscular Volume 88.4 fL (80-95); Mean Platelet Volume 10.1 fL (8.0-11.0); Monocytes % 9.5; Neutrophils % 63.6; Platelet Count 283 x1000/uL (130-400); RBC 4.81 m/cumm (4.50-6.00); RBC Distribution Width 12.3 % (11.8-14.1); White Blood Cell Count 8.03 k/cumm (4.4-10.8)
[2018-07-05 14:07] LABS: ALT 26 U/L (12-78); AST 11 U/L (15-37); Albumin 4.4 g/dL (3.4-5.0); Alkaline Phosphatase 47 U/L (46-116); Anion Gap 12.1 mmol/L (3-11); BUN 20 mg/dL (7-18); Bilirubin, Direct 0.16 mg/dL (0.00-0.20); Bilirubin, Total 0.6 mg/dL (0.2-1.0); C-Reactive Protein 0.13 mg/dL (0.0-0.3); CO2 25.9 mmol/L (21.0-32.0); CREATININE 0.95 mg/dL (0.70-1.30); Chloride 102 mmol/L (98-107); Glucose 100 mg/dL (70-100); Potassium 3.3 mmol/L (3.5-5.1); Sodium 140 mmol/L (136-145); Total Protein 8.1 g/dL (6.4-8.2)
[2018-07-05 14:14] LABS: Calcium 9.4 mg/dL (8.5-10.1)
[2018-07-05 14:59] LABS: ESR 11 MM/HR (0-15)
[2018-07-19 15:09] LABS: Abs Immature Grans 0.01 k/cumm (0.0-0.09); Absolute Basophil Count 0.02 k/cumm (0.0-0.2); Absolute Eosinophil Count 0.11 k/cumm (0.0-0.7); Absolute Lymphocyte Count 2.59 k/cumm (1.2-3.4); Absolute Neutrophil Count 3.67 k/cumm (1.2-6.7); Basophils % 0.3; Eosinophils % 1.5; HCT 40.7 % (40.0-50.0); Immature Grans % 0.1; Lymphocytes % 36.5; Mean Corp. HGB Concentration 34.4 g/dL (32.0-36.0); Mean Corpuscular Hemoglobin 30.7 pg (27.0-33.0); Mean Corpuscular Volume 89.3 fL (80-95); Mean Platelet Volume 10.1 fL (8.0-11.0); Monocytes % 9.9; Neutrophils % 51.7; Platelet Count 271 x1000/uL (130-400); RBC 4.56 m/cumm (4.50-6.00); RBC Distribution Width 12.5 % (11.8-14.1)
[2018-07-19 15:21] LABS: ALT 24 U/L (12-78); AST 10 U/L (15-37); Alkaline Phosphatase 48 U/L (46-116); Anion Gap 8.6 mmol/L (3-11); BUN 25 mg/dL (7-18); Bilirubin, Direct 0.07 mg/dL (0.00-0.20); Bilirubin, Total 0.2 mg/dL (0.2-1.0); CO2 27.4 mmol/L (21.0-32.0); CREATININE 0.92 mg/dL (0.70-1.30); Calcium 8.9 mg/dL (8.5-10.1); Chloride 104 mmol/L (98-107); Glucose 105 mg/dL (70-100); Sodium 140 mmol/L (136-145); Total Protein 7.5 g/dL (6.4-8.2)
[2018-08-02 13:38] LABS: Abs Immature Grans 0.01 k/cumm (0.0-0.09); Absolute Basophil Count 0.04 k/cumm (0.0-0.2); Absolute Eosinophil Count 0.19 k/cumm (0.0-0.7); Absolute Monocyte Count 0.85 k/cumm (0.11-0.7); Absolute Neutrophil Count 5.63 k/cumm (1.2-6.7); Basophils % 0.5; Eosinophils % 2.2; HGB 14.8 g/dL (13.5-17.5); Immature Grans % 0.1; Lymphocytes % 22.9; Mean Corp. HGB Concentration 34.4 g/dL (32.0-36.0); Mean Corpuscular Hemoglobin 31.1 pg (27.0-33.0); Mean Corpuscular Volume 90.3 fL (80-95); Mean Platelet Volume 10.3 fL (8.0-11.0); Monocytes % 9.7; Neutrophils % 64.6; Platelet Count 263 x1000/uL (130-400); RBC 4.76 m/cumm (4.50-6.00); RBC Distribution Width 12.6 % (11.8-14.1); White Blood Cell Count 8.72 k/cumm (4.4-10.8)
[2018-08-02 13:48] LABS: ALT 37 U/L (12-78); AST 20 U/L (15-37); Albumin 4.5 g/dL (3.4-5.0); Alkaline Phosphatase 43 U/L (46-116); Bilirubin, Direct 0.12 mg/dL (0.00-0.20); Bilirubin, Total 0.3 mg/dL (0.2-1.0); C-Reactive Protein 0.16 mg/dL (0.0-0.3); Total Protein 8.2 g/dL (6.4-8.2)
== END 2018-08-04 23:59 | disposition home or self-care (01) ==
LOC: INF 01:50
PROVIDERS: PCP Nurse Practitioner; Visit Provider Internal Medicine
DX: K50.00 Crohn's disease of small intestine without complications (principal)
CPT/HCPCS: 36415; 80053; 80076; 85652; 82248; 85025; 86140

== ENCOUNTER 2018-08-28 02:07 | Outpatient (RCR) | payer OTHER, SELFPAY ==
[2018-08-16 13:05] LABS: Abs Immature Grans 0.01 k/cumm (0.0-0.09); Absolute Basophil Count 0.03 k/cumm (0.0-0.2); Absolute Eosinophil Count 0.16 k/cumm (0.0-0.7); Absolute Neutrophil Count 4.81 k/cumm (1.2-6.7); Basophils % 0.4; Eosinophils % 2.1; HGB 13.7 g/dL (13.5-17.5); Immature Grans % 0.1; Mean Corp. HGB Concentration 34.3 g/dL (32.0-36.0); Mean Corpuscular Hemoglobin 30.8 pg (27.0-33.0); Mean Corpuscular Volume 89.9 fL (80-95); Mean Platelet Volume 10.2 fL (8.0-11.0); Monocytes % 9.2; Neutrophils % 63.2; Platelet Count 292 x1000/uL (130-400); RBC 4.45 m/cumm (4.50-6.00); RBC Distribution Width 12.5 % (11.8-14.1); White Blood Cell Count 7.61 k/cumm (4.4-10.8)
[2018-08-16 13:19] LABS: ALT 24 U/L (12-78); AST 11 U/L (15-37); Albumin 4.1 g/dL (3.4-5.0); Alkaline Phosphatase 49 U/L (46-116); Bilirubin, Direct 0.11 mg/dL (0.00-0.20); Bilirubin, Total 0.3 mg/dL (0.2-1.0); C-Reactive Protein 0.19 mg/dL (0.0-0.3); Total Protein 7.6 g/dL (6.4-8.2)
== END 2018-09-03 23:59 | disposition home or self-care (01) ==
LOC: INF 02:07
PROVIDERS: PCP Nurse Practitioner; Visit Provider Internal Medicine
DX: K50.00 Crohn's disease of small intestine without complications (principal)
CPT/HCPCS: 36415; 80076; 85025; 86140

== ENCOUNTER 2018-08-28 06:48 | Emergency (ER) | payer OTHER, SELFPAY ==
[2018-08-28 06:52] VITALS: BP 131/70; PULSE 73; RESP 18; TEMP 36.8; O2SAT 98
--- NOTE | 2018-08-28 07:06 | W.ED.GENAD ---
Discharge Plan Disposition Patient Disposition: HOME Condition: Stable Discharge Details Chief Complaint: Abd Prob Clinical Impression: Abdominal pain, Constipation Primary Care Provider: Casie Chandler ED Provider: Shikha Mahan Home Meds and New Rx's Prescriptions: New ondansetron 4 mg tablet,disintegrating 4 mg PO BID-TID PRN (Reason: nausea and vomiting) Qty: 8 RF: 0 Continued hydroxyzine HCl 10 mg tablet 20 mg PO Q6H PRN (Reason: anxiety) Qty: 60 RF: 0 Humira 40 mg/0.8 mL syringe kit 40 mg SC Q14D Qty: 2 RF: 5 omeprazole 40 mg capsule,delayed release(DR/EC) 40 mg PO BID Qty: 60 RF: 3 gabapentin 800 mg tablet 800 mg PO TID Qty: 270 RF: 2 No Action ondansetron 4 mg Tablet,Disintegrating 4 mg PO TID PRNRF: 0 Discharge Instructions Instructions: Constipation (ED), Abdominal Pain (ED) Additional Instructions: Please return immediately to the emergency department if you develop any new or worsening symptoms or if you become otherwise concerned. It is extremely important that you call as soon as possible to make an appointment to be seen in follow-up by your specialty foods cook and also by her primary care doctor. Please continue to take MiraLAX twice daily as recommended by her specialty foods cook. Stand Alone Forms: Work Release Referrals: Casie Chandler, MANAGER ANALYTICAL [Primary Care Provider] - Discharge Data Discharge Date/Time-TO BE ENTERED AT DEPARTURE: 08/28/18 10:02 Medical Decision Making <Nikko Ramírez MD - Last Filed: 08/28/18 07:10> 32 yo male with hx of crohn's diagnosed in March, no prior abdominal surgeries per pt comes in with 3 days of worsening abdominal pain, 1 day of n/v and hasn't had a normal bm for about 5 days. On exam he has tenderness throughout but is most tender with guarding in the rlq. NO urinary symptoms. HE denies any new foods or recent travel. Given his hx and abdominal symptoms and exam will obtain lab work and imaging to eval for pancreatitis, hepatitis, sbo and appendicitis among other pathology PAtient will be signed out at change of shift to Dr. Mahan pending labs and imaging Differential Diagnosis crohn's flare, sbo, appendicitis, pancreatitis <Shikha Mahan MD - Last Filed: 09/08/18 21:09> Patient signed out to me by Dr. Ramírez at time of shift change with labs, imaging pending. Labs nondiagnostic, CT per radiology shows normal amount of stool in the ascending colon, no acute abnormal findings. On reassessment, patient reports that he feels improved, continues to have mild cramping pain in the right lower quadrant and across the lower abdomen. Taking p.o. without issue. Given nondiagnostic work-up at this time, I have called [facility] ([id number]) to discuss patient with GI (patient sees Dr. Posadas with GI). [facility] called back, discussed Pt presentation and results with GI early education teacher. They recommend continue miralax, will see Pt in f/u as outpt, no further recommendations at this time. They note intermittent vomiting and constipation have been longstanding for Pt. Pt reports that he feels well upon reassessment, requests d/c to home, requests rx zofran. I had a lengthy discussion with the Pt re: RTED precautions, importance of outpt f/u with PCP and GI. Pt verbalizes understanding of the plan and is amenable. Pt discharged to home with clear plan for outpt f/u. All questions answered. Medical Records Medical records reviewed: Yes I reviewed the patient's medical records. Imaging Data Radiologic Study: Attestation: I personally reviewed and interpreted this imaging study as follows: Radiologist's impression: CT ABDOMEN AND PELVIS: Comparison is made with Nov 2017. Images were performed from the lung bases through the ischial tuberosities after IV and without oral contrast. The lung bases are clear. The liver, gallbladder, spleen, adrenals, pancreas, and kidneys are unremarkable. The appendix appears normal. No bowel dilatation or inflammatory changes are seen. Ther is a normal quantity of stool in the ascending and transverse colon. The descending rectosigmoid colons are decompressed. The bladder and prostate are unremarkable. There is no ascites, evidence of mass or adenopathy. IMPRESSION: No acute abnormality. Lab Data Lab results reviewed: Yes I reviewed the patient's lab results. Laboratory Tests Range/Units 08/28/18 08/28/18 08/28/18 07:10 07:10 07:10 WBC (4.4-10.8) k/cumm 7.28 RBC (4.50-6.00) m/cumm 4.68 Hgb (13.5-17.5) g/dL 14.4 Hct (40.0-50.0) % 41.9 MCV (80-95) fL 89.5 MCH (27.0-33.0) pg 30.8 MCHC (32.0-36.0) g/dL 34.4 RDW (11.8-14.1) % 12.9 Plt Count (130-400) x1000/uL 296 MPV (8.0-11.0) fL 9.9 Immature Gran % 0.3 Neutrophils % 53.2 Lymphocytes % 33.1 Monocytes % 9.2 Eosinophils % 3.8 Basophils % 0.4 Absolute Neutrophils (1.2-6.7) k/cumm 3.87 Absolute Lymphocytes (1.2-3.4) k/cumm 2.41 Absolute Monocytes (0.11-0.7) k/cumm 0.67 Absolute Eosinophils (0.0-0.7) k/cumm 0.28 Absolute Basophils (0.0-0.2) k/cumm 0.03 ESR (0-15) MM/HR Sodium (136-145) mmol/L 143 Potassium (3.5-5.1) mmol/L 3.4 L Chloride (98-107) mmol/L 104 Carbon Dioxide (21.0-32.0) mmol/L 28.3 Anion Gap (3-11) mmol/L 10.7 BUN (7-18) mg/dL 11 Creatinine (0.70-1.30) mg/dL 1.02 Estimated GFR/1.73 m2 (mL/min/1.73m2) >= 60.00 Glucose (70-100) mg/dL 106 H Calcium (8.5-10.1) mg/dL 9.2 Magnesium (1.8-2.4) mg/dL 2.0 Total Bilirubin (0.2-1.0) mg/dL 0.4 AST (15-37) U/L 16 ALT (12-78) U/L 35 Alkaline Phosphatase (46-116) U/L 56 C-Reactive Protein (0.0-0.3) mg/dL 0.25 Total Protein (6.4-8.2) g/dL 7.8 Albumin (3.4-5.0) g/dL 4.1 Lipase (73-393) U/L 359 Urine Color (Yellow) Urine Clarity Urine pH (5-8) Ur Specific [place] (1.005-1.025) Urine Protein (Negative) mg/dL Urine Ketones (Negative) mg/dL Urine Blood (Negative) Urine Nitrite (Negative) Urine Bilirubin (Negative) Urine Urobilinogen (Up TO 0.2) EU/dL Ur Leukocyte Esterase (Negative) Urine Glucose (Negative) mg/dL Range/Units 08/28/18 08/28/18 07:10 07:46 WBC (4.4-10.8) k/cumm RBC (4.50-6.00) m/cumm Hgb (13.5-17.5) g/dL Hct (40.0-50.0) % MCV (80-95) fL MCH (27.0-33.0) pg MCHC (32.0-36.0) g/dL RDW (11.8-14.1) % Plt Count (130-400) x1000/uL MPV (8.0-11.0) fL Immature Gran % Neutrophils % Lymphocytes % Monocytes % Eosinophils % Basophils % Absolute Neutrophils (1.2-6.7) k/cumm Absolute Lymphocytes (1.2-3.4) k/cumm Absolute Monocytes (0.11-0.7) k/cumm Absolute Eosinophils (0.0-0.7) k/cumm Absolute Basophils (0.0-0.2) k/cumm ESR (0-15) MM/HR 13 Sodium (136-145) mmol/L Potassium (3.5-5.1) mmol/L Chloride (98-107) mmol/L Carbon Dioxide (21.0-32.0) mmol/L Anion Gap (3-11) mmol/L BUN (7-18) mg/dL Creatinine (0.70-1.30) mg/dL Estimated GFR/1.73 m2 (mL/min/1.73m2) Glucose (70-100) mg/dL Calcium (8.5-10.1) mg/dL Magnesium (1.8-2.4) mg/dL Total Bilirubin (0.2-1.0) mg/dL AST (15-37) U/L ALT (12-78) U/L Alkaline Phosphatase (46-116) U/L C-Reactive Protein (0.0-0.3) mg/dL Total Protein (6.4-8.2) g/dL Albumin (3.4-5.0) g/dL Lipase (73-393) U/L Urine Color (Yellow) Yellow Urine Clarity Clear Urine pH (5-8) 7.0 Ur Specific [place] (1.005-1.025) 1.015 Urine Protein (Negative) mg/dL Negative Urine Ketones (Negative) mg/dL Negative Urine Blood (Negative) Negative Urine Nitrite (Negative) Negative Urine Bilirubin (Negative) Negative Urine Urobilinogen (Up TO 0.2) EU/dL 1.0 H Ur Leukocyte Esterase (Negative) Negative Urine Glucose (Negative) mg/dL Negative HPI <Nikko Ramírez MD - Last Filed: 08/28/18 07:10> General Mode of arrival: ambulatory. Date/Time Provider Initiated Documentation: 08/28/18 06:57. Limitations to Documentation: no limitations. Information obtained by: patient. History of Present Illness 33 year old M presents to the emergency department with the chief complaint of abdominal pain, described as moderate and severe, Quality is described as stabbing and sharp, and is localized to the abdomen. Patient reports no radiation. Patient started experiencing this day(s) (3) and it has been constant. No relieving factors improve symptom(s), No exacerbating factors reported . Patient notes nausea/vomiting. Related Data Home Medications Medication Instructions Recorded Confirmed hydroxyzine HCl 10 mg tablet 20 mg PO Q6H PRN #60 tab 06/29/18 08/28/18 adalimumab 40 mg/0.8 mL 40 mg SC Q14D #2 syringe 07/07/18 08/28/18 subcutaneous syringe kit omeprazole 40 mg capsule,delayed 40 mg PO BID #60 cap 08/08/18 08/28/18 release gabapentin 800 mg tablet 800 mg PO TID #270 tab 08/09/18 08/28/18 ondansetron 4 mg PO BID-TID PRN #8 tab 08/28/18 ondansetron 4 mg PO TID PRN 08/28/18 08/28/18 Previous Rx's Medication Instructions Recorded hydroxyzine HCl 10 mg tablet 20 mg PO Q6H PRN #60 tab 06/29/18 adalimumab 40 mg/0.8 mL 40 mg SC Q14D #2 syringe 07/07/18 subcutaneous syringe kit omeprazole 40 mg capsule,delayed 40 mg PO BID #60 cap 08/08/18 release gabapentin 800 mg tablet 800 mg PO TID #270 tab 08/09/18 ondansetron 4 mg PO BID-TID PRN #8 tab 08/28/18 Allergies Allergy/AdvReac Type Severity Reaction Status Date / Time No Known Allergies Allergy Verified 08/28/18 06:57 General Stated Complaint: Abd Prob MARIA ESTHER: 3 Review of Systems <Nikko Ramírez MD - Last Filed: 08/28/18 07:10> Review of Systems All systems reviewed & are unremarkable except as noted in HPI and below Constitutional Denies chills and Denies fever(s) Cardiovascular Denies chest pain and Denies dyspnea Respiratory Denies dyspnea Gastrointestinal Denies nausea Psychiatric Denies depression Endocrine Denies cold intolerance PFSH <Nikko Ramírez MD - Last Filed: 08/28/18 07:10> Social History Smoking/Tobacco Use Status: Former Tobacco Use Quit Date: 03/08/17 Alcohol Intake: current Alcohol Intake frequency: 0-2 drinks per day Drug use: Occasionally Substance use type: does not use Housing: apartment 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 Pets and animals: Yes (1) Pets and animals: dog(s) Duration: > 90 minutes/day Frequency: 3-4 times per week Do you feel safe in your relationship?: Yes Exam <Nikko Ramírez MD - Last Filed: 08/28/18 07:10> Const General: no acute distress Orientation: alert [facility] Head: normal to inspection Ears: external ears normal General nose exam: external nose normal Mouth: moist mucous membranes Eyes General: appearance normal, both eyes and all related structures Neck Neck: normal visual inspection Resp Effort & Inspection: normal respiratory effort and able to speak in complete sentences Cardio Rate: regular rate GI Inspection: no abdominal wall ecchymosis Skin General skin exam: no rashes or lesions noted Neuro General: alert and oriented x3 Extrem General: normal to inspection Psych Mental Status: mental status grossly normal Course <Nikko Ramírez MD - Last Filed: 08/28/18 07:10> Vital Signs Temperature 36.8 C 08/28/18 06:52 Pulse 73 08/28/18 06:52 Respiratory Rate 18 08/28/18 06:52 Blood Pressure 131/70 08/28/18 06:52 Pulse Oximetry 98 08/28/18 06:52 Temperature 36.8 C 08/28/18 06:52 Temperature Source Temporal Artery Scan 08/28/18 06:52 Pulse 73 08/28/18 06:52 Respiratory Rate 18 08/28/18 06:52 Respiratory Effort Non-Labored 08/28/18 06:56 Blood Pressure 131/70 08/28/18 06:52 Blood Pressure Position Sitting 08/28/18 06:52 Pulse Oximetry 98 08/28/18 06:52 Oxygen Delivery Method Room Air 08/28/18 06:52 Oxygen Flow Rate 0 08/28/18 06:52 Pain Level 7 08/28/18 06:52 Sign Out <Nikko Ramírez MD - Last Filed: 08/28/18 07:10> Sign Out Data: Sign Out Comment: follow up on labs and abdominal imaging Last updated by Nikko Ramírez MD at 08/28/18 07:12
[2018-08-28] MEDS: Normal Saline 1,000 ML 1000 ML IV ×2 (07:10→08:16)
--- NOTE | 2018-08-28 07:10 | ED.GENADUL_ITS ---
Discharge Plan Disposition Patient Disposition: HOME Condition: Stable Discharge Details Chief Complaint: Abd Prob Clinical Impression: Abdominal pain, Constipation Primary Care Provider: Casie Chandler ED Provider: Shikha Mahan Home Meds and New Rx's Prescriptions: New ondansetron 4 mg tablet,disintegrating 4 mg PO BID-TID PRN (Reason: nausea and vomiting) Qty: 8 RF: 0 Continued hydroxyzine HCl 10 mg tablet 20 mg PO Q6H PRN (Reason: anxiety) Qty: 60 RF: 0 Humira 40 mg/0.8 mL syringe kit 40 mg SC Q14D Qty: 2 RF: 5 omeprazole 40 mg capsule,delayed release(DR/EC) 40 mg PO BID Qty: 60 RF: 3 gabapentin 800 mg tablet 800 mg PO TID Qty: 270 RF: 2 No Action ondansetron 4 mg Tablet,Disintegrating 4 mg PO TID PRNRF: 0 Discharge Instructions Instructions: Constipation (ED), Abdominal Pain (ED) Additional Instructions: Please return immediately to the emergency department if you develop any new or worsening symptoms or if you become otherwise concerned. It is extremely important that you call as soon as possible to make an appointment to be seen in follow-up by your geophysical support specialist and also by her primary care doctor. Please continue to take MiraLAX twice daily as recommended by her geophysical support specialist. Stand Alone Forms: Work Release Referrals: Casie Chandler, PURE PAK MACHINE OPERATOR [Primary Care Provider] - Discharge Data Discharge Date/Time-TO BE ENTERED AT DEPARTURE: 08/28/18 10:02 Medical Decision Making <Nikko Ramírez MD - Last Filed: 08/28/18 07:10> 32 yo male with hx of crohn's diagnosed in March, no prior abdominal surgeries per pt comes in with 3 days of worsening abdominal pain, 1 day of n/v and hasn't had a normal bm for about 5 days. On exam he has tenderness throughout but is most tender with guarding in the rlq. NO urinary symptoms. HE denies any new foods or recent travel. Given his hx and abdominal symptoms and exam will obtain lab work and imaging to eval for pancreatitis, hepatitis, sbo and appendicitis among other pathology PAtient will be signed out at change of shift to Dr. Mahan pending labs and im aging Differential Diagnosis crohn's flare, sbo, appendicitis, pancreatitis <Shikha Mahan MD - Last Filed: 09/08/18 21:09> Patient signed out to me by Dr. Ramírez at time of shift change with labs, imaging pending. Labs nondiagnostic, CT per radiology shows normal amount of stool in the ascending colon, no acute abnormal findings. On reassessment, patient reports that he feels improved, continues to have mild cramping pain in the right lower quadrant and across the lower abdomen. Taking p.o. without issue. Given nondiagnostic work-up at this time, I have called [facility] ([id number]) to discuss patient with GI (patient sees Dr. Posadas with GI). [facility] called back, discussed Pt presentation and results with GI exceptional children teacher. They recommend continue miralax, will see Pt in f/u as outpt, no further recommendations at this time. They note intermittent vomiting and constipation have been longstanding for Pt. Pt reports that he feels well upon reassessment, requests d/c to home, requests rx zofran. I had a lengthy discussion with the Pt re: RTED precautions, importance of outpt f/u with PCP and GI. Pt verbalizes understanding of the plan and is amenable. Pt discharged to home with clear plan for outpt f/u. All questions answered. Medical Records Medical records reviewed: Yes I reviewed the patient's medical records. Imaging Data Radiologic Study: Attestation: I personally reviewed and interpreted this imaging study as follows: Radiologist's impression: CT ABDOMEN AND PELVIS: Comparison is made with Nov 2017. Images were performed from the lung bases through the ischial tuberosities after IV and without oral contrast. The lung bases are clear. The liver, gallbladder, spleen, adrenals, pancreas, and kidneys are unremarkable. The appendix appears normal. No bowel dilatation or inflammatory changes are seen. Ther is a normal quantity of stool in the ascending and transverse colon. The descending rectosigmoid colons are decompressed. The bladder and prostate are unremarkable. There is no ascites, evidence of mass or adenopathy. IMPRESSION: No acute abnormality. Lab Data Lab results reviewed: Yes I reviewed the patient's lab results. Laboratory Tests Range/Units 08/28/18 08/28/18 08/28/18 07:10 07:10 07:10 WBC (4.4-10.8) k/cumm 7.28 RBC (4.50-6.00) m/cumm 4.68 Hgb (13.5-17.5) g/dL 14.4 Hct (40.0-50.0) % 41.9 MCV (80-95) fL 89.5 MCH (27.0-33.0) pg 30.8 MCHC (32.0-36.0) g/dL 34.4 RDW (11.8-14.1) % 12.9 Plt Count (130-400) x1000/uL 296 MPV (8.0-11.0) fL 9.9 Immature Gran % 0.3 Neutrophils % 53.2 Lymphocytes % 33.1 Monocytes % 9.2 Eosinophils % 3.8 Basophils % 0.4 Absolute Neutrophils (1.2-6.7) k/cumm 3.87 Absolute Lymphocytes (1.2-3.4) k/cumm 2.41 Absolute Monocytes (0.11-0.7) k/cumm 0.67 Absolute Eosinophils (0.0-0.7) k/cumm 0.28 Absolute Basophils (0.0-0.2) k/cumm 0.03 ESR (0-15) MM/HR Sodium (136-145) mmol/L 143 Potassium (3.5-5.1) mmol/L 3.4 L Chloride (98-107) mmol/L 104 Carbon Dioxide (21.0-32.0) mmol/L 28.3 Anion Gap (3-11) mmol/L 10.7 BUN (7-18) mg/dL 11 Creatinine (0.70-1.30) mg/dL 1.02 Estimated GFR/1.73 m2 (mL/min/1.73m2) >= 60.00 Glucose (70-100) mg/dL 106 H Calcium (8.5-10.1) mg/dL 9.2 Magnesium (1.8-2.4) mg/dL 2.0 Total Bilirubin (0.2-1.0) mg/dL 0.4 AST (15-37) U/L 16 ALT (12-78) U/L 35 Alkaline Phosphatase (46-116) U/L 56 C-Reactive Protein (0.0-0.3) mg/dL 0.25 Total Protein (6.4-8.2) g/dL 7.8 Albumin (3.4-5.0) g/dL 4.1 Lipase (73-393) U/L 359 Urine Color (Yellow) Urine Clarity Urine pH (5-8) Ur Specific [place] (1.005-1.025) Urine Protein (Negative) mg/dL Urine Ketones (Negative) mg/dL Urine Blood (Negative) Urine Nitrite (Negative) Urine Bilirubin (Negative) Urine Urobilinogen (Up TO 0.2) EU/dL Ur Leukocyte Esterase (Negative) Urine Glucose (Negative) mg/dL Range/Units 08/28/18 08/28/18 07:10 07:46 WBC (4.4-10.8) k/cumm RBC (4.50-6.00) m/cumm Hgb (13.5-17.5) g/dL Hct (40.0-50.0) % MCV (80-95) fL MCH (27.0-33.0) pg MCHC (32.0-36.0) g/dL RDW (11.8-14.1) % Plt Count (130-400) x1000/uL MPV (8.0-11.0) fL Immature Gran % Neutrophils % Lymphocytes % Monocytes % Eosinophils % Basophils % Absolute Neutrophils (1.2-6.7) k/cumm Absolute Lymphocytes (1.2-3.4) k/cumm Absolute Monocytes (0.11-0.7) k/cumm Absolute Eosinophils (0.0-0.7) k/cumm Absolute Basophils (0.0-0.2) k/cumm ESR (0-15) MM/HR 13 Sodium (136-145) mmol/L Potassium (3.5-5.1) mmol/L Chloride (98-107) mmol/L Carbon Dioxide (21.0-32.0) mmol/L Anion Gap (3-11) mmol/L BUN (7-18) mg/dL Creatinine (0.70-1.30) mg/dL Estimated GFR/1.73 m2 (mL/min/1.73m2) Glucose (70-100) mg/dL Calcium (8.5-10.1) mg/dL Magnesium (1.8-2.4) mg/dL Total Bilirubin (0.2-1.0) mg/dL AST (15-37) U/L ALT (12-78) U/L Alkaline Phosphatase (46-116) U/L C-Reactive Protein (0.0-0.3) mg/dL Total Protein (6.4-8.2) g/dL Albumin (3.4-5.0) g/dL Lipase (73-393) U/L Urine Color (Yellow) Yellow Urine Clarity Clear Urine pH (5-8) 7.0 Ur Specific [place] (1.005-1.025) 1.015 Urine Protein (Negative) mg/dL Negative Urine Ketones (Negative) mg/dL Negative Urine Blood (Negative) Negative Urine Nitrite (Negative) Negative Urine Bilirubin (Negative) Negative Urine Urobilinogen (Up TO 0.2) EU/dL 1.0 H Ur Leukocyte Esterase (Negative) Negative Urine Glucose (Negative) mg/dL Negative HPI <Nikko Ramírez MD - Last Filed: 08/28/18 07:10> General Mode of arrival: ambulatory . Date/Time Provider Initiated Documentation: 08/28/18 06:57 . Limitations to Documentation: no limitations . Information obtained by: patient . History of Present Illness 33 year old M presents to the emergency department with the chief complaint of abdominal pain, described as moderate and severe, Quality is described as stabbing and sharp, and is localized to the abdomen. Patient reports no radiation. Patient started experiencing this day(s) (3) and it has been constant. No relieving factors improve symptom(s), No exacerbating factors reported . Pat ient notes nausea/vomiting. Related Data Home Medications Medication Instructions Recorded Confirmed hydroxyzine HCl 10 mg tablet 20 mg PO Q6H PRN #60 tab 06/29/18 08/28/18 adalimumab 40 mg/0.8 mL 40 mg SC Q14D #2 syringe 07/07/18 08/28/18 subcutaneous syringe kit omeprazole 40 mg capsule,delayed 40 mg PO BID #60 cap 08/08/18 08/28/18 release gabapentin 800 mg tablet 800 mg PO TID #270 tab 08/09/18 08/28/18 ondansetron 4 mg PO BID-TID PRN #8 tab 08/28/18 ondansetron 4 mg PO TID PRN 08/28/18 08/28/18 Previous Rx's Medication Instructions Recorded hydroxyzine HCl 10 mg tablet 20 mg PO Q6H PRN #60 tab 06/29/18 adalimumab 40 mg/0.8 mL 40 mg SC Q14D #2 syringe 07/07/18 subcutaneous syringe kit omeprazole 40 mg capsule,delayed 40 mg PO BID #60 cap 08/08/18 release gabapentin 800 mg tablet 800 mg PO TID #270 tab 08/09/18 ondansetron 4 mg PO BID-TID PRN #8 tab 08/28/18 Allergies Allergy/AdvReac Type Severity Reaction Status Date / Time No Known Allergies Allergy Verified 08/28/18 06:57 General Stated Complaint: Abd Prob MARIA ESTHER: 3 Review of Systems <Nikko Ramírez MD - Last Filed: 08/28/18 07:10> Review of Systems All systems reviewed & are unremarkable except as noted in HPI and below Constitutional Denies chills and Denies fever(s) Cardiovascular Denies chest pain and Denies dyspnea Respiratory Denies dyspnea Gastrointestinal Denies nausea Psychiatric Denies depression Endocrine Denies cold intolerance PFSH <Nikko Ramírez MD - Last Filed: 08/28/18 07:10> Social History Smoking/Tobacco Use Status: Former Tobacco Use Quit Date: 03/08/17 Alcohol Intake: current Alcohol Intake frequency: 0-2 drinks per day Drug use: Occasionally Substance use type: does not use Housing: apartment 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 Pets and animals: Yes (1) Pets and animals: dog(s) Duration: > 90 minutes/day Frequency: 3-4 times per week Do you feel safe in your relationship?: Yes Exam <Nikko Ramírez MD - Last Filed: 08/28/18 07:10> Const General: no acute distress Orientation: alert [facility] Head: normal to inspection Ears: external ears normal General nose exam: external nose normal Mouth: moist mucous membranes Eyes General: appearance normal, both eyes and all related structures Neck Neck: normal visual inspection Resp Effort & Inspection: normal respiratory effort and able to speak in complete sentences Cardio Rate: regular rate GI Inspection: no abdominal wall ecchymosis Skin General skin exam: no rashes or lesions noted Neuro General: alert and oriented x3 Extrem General: normal to inspection Psych Mental Status: mental status grossly normal Course <Nikko Ramírez MD - Last Filed: 08/28/18 07:10> Vital Signs Temperature 36.8 C 08/28/18 06:52 Pulse 73 08/28/18 06:52 Respiratory Rate 18 08/28/18 06:52 Blood Pressure 131/70 08/28/18 06:52 Pulse Oximetry 98 08/28/18 06:52 Temperature 36.8 C 08/28/18 06:52 Temperature Source Temporal Artery Scan 08/28/18 06:52 Pulse 73 08/28/18 06:52 Respiratory Rate 18 08/28/18 06:52 Respiratory Effort Non-Labored 08/28/18 06:56 Blood Pressure 131/70 08/28/18 06:52 Blood Pressure Position Sitting 08/28/18 06:52 Pulse Oximetry 98 08/28/18 06:52 Oxygen Delivery Method Room Air 08/28/18 06:52 Oxygen Flow Rate 0 08/28/18 06:52 Pain Level 7 08/28/18 06:52 Sign Out <Nikko Ramírez MD - Last Filed: 08/28/18 07:10> Sign Out Data: Sign Out Comment: follow up on labs and abdominal imaging Last updated by Nikko Ramírez MD at 08/28/18 07:12
[2018-08-28] MEDS: Ondansetron 4 MG/2 ML VIAL IVP (07:18)
[2018-08-28] MEDS: HYDROmorphone 2 MG/ML VIAL 1 MG IVP ×2 (07:19→08:16)
[2018-08-28 07:22] LABS: Abs Immature Grans 0.02 k/cumm (0.0-0.09); Absolute Basophil Count 0.03 k/cumm (0.0-0.2); Absolute Eosinophil Count 0.28 k/cumm (0.0-0.7); Absolute Lymphocyte Count 2.41 k/cumm (1.2-3.4); Absolute Monocyte Count 0.67 k/cumm (0.11-0.7); Absolute Neutrophil Count 3.87 k/cumm (1.2-6.7); Basophils % 0.4; Eosinophils % 3.8; HCT 41.9 % (40.0-50.0); HGB 14.4 g/dL (13.5-17.5); Immature Grans % 0.3; Lymphocytes % 33.1; Mean Corp. HGB Concentration 34.4 g/dL (32.0-36.0); Mean Corpuscular Hemoglobin 30.8 pg (27.0-33.0); Mean Corpuscular Volume 89.5 fL (80-95); Mean Platelet Volume 9.9 fL (8.0-11.0); Monocytes % 9.2; Neutrophils % 53.2; Platelet Count 296 x1000/uL (130-400); RBC 4.68 m/cumm (4.50-6.00); RBC Distribution Width 12.9 % (11.8-14.1); White Blood Cell Count 7.28 k/cumm (4.4-10.8)
[2018-08-28 07:37] LABS: C-Reactive Protein 0.25 mg/dL (0.0-0.3)
[2018-08-28 07:53] LABS: ALT 35 U/L (12-78); AST 16 U/L (15-37); Albumin 4.1 g/dL (3.4-5.0); Alkaline Phosphatase 56 U/L (46-116); Anion Gap 10.7 mmol/L (3-11); BUN 11 mg/dL (7-18); Bilirubin, Total 0.4 mg/dL (0.2-1.0); CO2 28.3 mmol/L (21.0-32.0); CREATININE 1.02 mg/dL (0.70-1.30); Calcium 9.2 mg/dL (8.5-10.1); Chloride 104 mmol/L (98-107); Glucose 106 mg/dL (70-100); Lipase 359 U/L (73-393); Potassium 3.4 mmol/L (3.5-5.1); Sodium 143 mmol/L (136-145); Total Protein 7.8 g/dL (6.4-8.2)
[2018-08-28 07:54] LABS: Bilirubin Negative (Negative); Blood Negative (Negative); Clarity Clear; Glucose Negative (Negative); Ketones Negative (Negative); Leukocyte Esterase Negative (Negative); Nitrite Negative (Negative); Specific Gravity 1.015 (1.005-1.025)
[2018-08-28] MEDS: Omnipaque 350 MG/ML 100 ML BTL IJ (08:19)
[2018-08-28] MEDS: Normal Saline Flush 10 ML SYR IVP (08:19)
[2018-08-28 09:00] LABS: ESR 13 MM/HR (0-15)
[2018-08-28 09:28] VITALS: BP 125/65; PULSE 69; RESP 18; TEMP 36.7; O2SAT 100
[2018-08-28 10:00] VITALS: BP 125/65; PULSE 69; RESP 18; TEMP 36.7; O2SAT 100
[2018-08-30 18:35] LABS: Adalimumab QN with Reflex Ab 7.8 mcg/mL
== END 2018-08-28 10:02 | disposition home or self-care (01) ==
PROVIDERS: Emergency Medicine; Internal Medicine Gastroenterology; Emergency Provider Student in an Organized Health Care Education/Training Program; PCP Nurse Practitioner
DX: R10.9 Unspecified abdominal pain (principal); K50.919 Crohn's disease, unspecified, with unspecified complications
CPT/HCPCS: 36415; 80053; 83520; 83690; 85652; 96361; 96374; 96375; 96376; 99285; 74177; 81003; 83735; 85025; 86140; 99284; J2405; J3490

== ENCOUNTER 2018-09-12 09:10 | Outpatient (CLI) | payer OTHER, SELFPAY ==
[2018-09-12 11:55] LABS: HCT 41.3 % (40.0-50.0); HGB 14.1 g/dL (13.5-17.5); Lymphocytes % 27.3; Mean Corp. HGB Concentration 34.1 g/dL (32.0-36.0); Mean Corpuscular Hemoglobin 30.9 pg (27.0-33.0); Mean Corpuscular Volume 90.4 fL (80-95); Mean Platelet Volume 10.3 fL (8.0-11.0); Neutrophils % 61.7; Platelet Count 274 x1000/uL (130-400); RBC 4.57 m/cumm (4.50-6.00); RBC Distribution Width 12.6 % (11.8-14.1); White Blood Cell Count 7.35 k/cumm (4.4-10.8)
[2018-09-12 11:56] LABS: Abs Immature Grans 0.01 k/cumm (0.0-0.09); Absolute Basophil Count 0.02 k/cumm (0.0-0.2); Absolute Eosinophil Count 0.18 k/cumm (0.0-0.7); Absolute Lymphocyte Count 2.01 k/cumm (1.2-3.4); Absolute Neutrophil Count 4.53 k/cumm (1.2-6.7); Basophils % 0.3; Eosinophils % 2.4; Immature Grans % 0.1; Monocytes % 8.2
[2018-09-12 12:17] LABS: ALT 29 U/L (12-78); AST 10 U/L (15-37); Alkaline Phosphatase 48 U/L (46-116); Bilirubin, Direct 0.09 mg/dL (0.00-0.20); Bilirubin, Total 0.4 mg/dL (0.2-1.0); Total Protein 7.3 g/dL (6.4-8.2)
== END 2018-09-12 09:30 ==
PROVIDERS: Internal Medicine; PCP Nurse Practitioner; Visit Provider Nurse Practitioner
DX: K50.00 Crohn's disease of small intestine without complications (principal)
CPT/HCPCS: 80076; 85025; 86140

== ENCOUNTER 2018-09-29 13:30 | Outpatient (RCR) | payer OTHER, SELFPAY ==
[2018-09-29 14:16] LABS: Abs Immature Grans 0.01 k/cumm (0.0-0.09); Absolute Basophil Count 0.04 k/cumm (0.0-0.2); Absolute Eosinophil Count 0.07 k/cumm (0.0-0.7); Absolute Lymphocyte Count 2.51 k/cumm (1.2-3.4); Absolute Monocyte Count 0.74 k/cumm (0.11-0.7); Absolute Neutrophil Count 3.96 k/cumm (1.2-6.7); Basophils % 0.5; HCT 39.4 % (40.0-50.0); HGB 13.7 g/dL (13.5-17.5); Immature Grans % 0.1; Lymphocytes % 34.2; Mean Corp. HGB Concentration 34.8 g/dL (32.0-36.0); Mean Corpuscular Hemoglobin 30.9 pg (27.0-33.0); Mean Corpuscular Volume 88.9 fL (80-95); Mean Platelet Volume 10.2 fL (8.0-11.0); Monocytes % 10.1; Neutrophils % 54.1; Platelet Count 250 x1000/uL (130-400); RBC 4.43 m/cumm (4.50-6.00); RBC Distribution Width 12.4 % (11.8-14.1); White Blood Cell Count 7.33 k/cumm (4.4-10.8)
[2018-09-29 14:22] LABS: ALT 21 U/L (12-78); AST 9 U/L (15-37); Albumin 4.3 g/dL (3.4-5.0); Alkaline Phosphatase 42 U/L (46-116); Bilirubin, Direct 0.16 mg/dL (0.00-0.20); Bilirubin, Total 0.8 mg/dL (0.2-1.0); C-Reactive Protein 0.14 mg/dL (0.0-0.3); Total Protein 7.7 g/dL (6.4-8.2)
== END 2018-10-04 23:59 | disposition home or self-care (01) ==
LOC: INF 13:30
PROVIDERS: PCP Nurse Practitioner; Visit Provider Internal Medicine
DX: K50.00 Crohn's disease of small intestine without complications (principal)
CPT/HCPCS: 36415; 80076; 85025; 86140

== ENCOUNTER 2018-11-21 10:44 | Outpatient (RCR) | payer OTHER, SELFPAY ==
[2018-11-21 11:21] LABS: Abs Immature Grans 0.01 k/cumm (0.0-0.09); Absolute Basophil Count 0.03 k/cumm (0.0-0.2); Absolute Eosinophil Count 0.13 k/cumm (0.0-0.7); Absolute Lymphocyte Count 2.07 k/cumm (1.2-3.4); Absolute Monocyte Count 0.57 k/cumm (0.11-0.7); Absolute Neutrophil Count 4.19 k/cumm (1.2-6.7); Basophils % 0.4; Eosinophils % 1.9; HCT 41.5 % (40.0-50.0); HGB 14.1 g/dL (13.5-17.5); Immature Grans % 0.1; Lymphocytes % 29.6; Mean Corpuscular Hemoglobin 30.9 pg (27.0-33.0); Mean Platelet Volume 10.1 fL (8.0-11.0); Monocytes % 8.1; Neutrophils % 59.9; Platelet Count 313 x1000/uL (130-400); RBC 4.56 m/cumm (4.50-6.00); RBC Distribution Width 12.6 % (11.8-14.1)
[2018-11-21 11:45] LABS: ALT 23 U/L (16-63); AST 10 U/L (15-37); Albumin 4.3 g/dL (3.4-5.0); Alkaline Phosphatase 49 U/L (46-116); Anion Gap 11.2 mmol/L (3-11); BUN 22 mg/dL (7-18); Bilirubin, Direct 0.15 mg/dL (0.00-0.20); Bilirubin, Total 0.6 mg/dL (0.2-1.0); C-Reactive Protein 0.16 mg/dL (0.0-0.3); CO2 25.8 mmol/L (21.0-32.0); Calcium 8.9 mg/dL (8.5-10.1); Chloride 105 mmol/L (98-107); Glucose 93 mg/dL (70-100); Potassium 3.5 mmol/L (3.5-5.1); Sodium 142 mmol/L (136-145); Total Protein 7.8 g/dL (6.4-8.2)
[2018-11-21 12:46] LABS: ESR 8 mm/hr (0-15)
[2018-11-23 18:25] LABS: Adalimumab QN with Reflex Ab 7.7 mcg/mL
== END 2018-12-04 23:59 | disposition home or self-care (01) ==
LOC: INF 10:44
PROVIDERS: PCP Nurse Practitioner; Visit Provider Internal Medicine
DX: K50.00 Crohn's disease of small intestine without complications (principal); Z79.899 Other long term (current) drug therapy
CPT/HCPCS: 36415; 80053; 80076; 83520; 85652; 85025; 86140

== ENCOUNTER 2018-12-15 11:48 | Emergency (ER) | payer OTHER, SELFPAY ==
[2018-12-15] VITALS (34 sets, daily range): BP systolic 105–148; BP diastolic 53–87; PULSE 63–112; RESP 11–36; TEMP 37.3; O2SAT 94–100
--- NOTE | 2018-12-15 12:00 | DI.RAD_ITS ---
EXAM: XR CHEST 2V PA LATERAL INDICATION: chest pain, r/o acute disease. COMPARISON: XR CHEST 2V PA LATERAL from 07/08/2018 TECHNIQUE: 2D digital imaging was performed. FINDINGS: The lungs are well expanded and free of infiltrate. There is no evidence of a pleural effusion. Car diovascular structures are intact. IMPRESSION: No evidence of acute cardiopulmonary disease.
[2018-12-15 12:13] LABS: Abs Immature Grans 0.01 k/cumm (0.0-0.09); Absolute Basophil Count 0.02 k/cumm (0.0-0.2); Absolute Eosinophil Count 0.03 k/cumm (0.0-0.7); Absolute Lymphocyte Count 1.73 k/cumm (1.2-3.4); Absolute Monocyte Count 0.63 k/cumm (0.11-0.7); Basophils % 0.3; Eosinophils % 0.4; HCT 39.9 % (40.0-50.0); HGB 13.8 g/dL (13.5-17.5); Immature Grans % 0.1; Mean Corp. HGB Concentration 34.6 g/dL (32.0-36.0); Mean Corpuscular Hemoglobin 30.9 pg (27.0-33.0); Mean Corpuscular Volume 89.5 fL (80-95); Monocytes % 9.1; Neutrophils % 65.1; Platelet Count 266 x1000/uL (130-400); RBC 4.46 m/cumm (4.50-6.00); RBC Distribution Width 12.3 % (11.8-14.1); White Blood Cell Count 6.92 k/cumm (4.4-10.8)
--- NOTE | 2018-12-15 12:30 | W.ED.GENAD ---
Discharge Plan Disposition Patient Disposition: HOME Condition: Improving Discharge Details Chief Complaint: Chest Pain Clinical Impression: Panic attack Primary Care Provider: Casie Chandler ED Provider: Felicia Chester Home Meds and New Rx's Prescriptions: Continued medical marijuana PO RF: 0 hydroxyzine HCl 10 mg tablet 20 mg PO Q6H PRN (Reason: anxiety) Qty: 60 RF: 0 Humira 40 mg/0.8 mL syringe kit 40 mg SC Q14D Qty: 2 RF: 5 omeprazole 40 mg capsule,delayed release(DR/EC) 40 mg PO BID Qty: 60 RF: 3 gabapentin 800 mg tablet 800 mg PO TID Qty: 270 RF: 2 ondansetron 4 mg Tablet,Disintegrating 4 mg PO TID PRNRF: 0 methylphenidate HCl [Ritalin] 20 mg Tablet 40 mg PO BID RF: 0 clonazepam [Klonopin] 0.5 mg Tablet 0.5 mg PO BID RF: 0 Discharge Instructions Instructions: Panic Attack (ED) Additional Instructions: Take your regular medications as directed. Follow-up with your primary care doctor next week for reevaluation. Return to the emergency department if you develop any worsening or new concerning symptoms. 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 Heart rate 100s. Remainder vitals within normal limits. EKG notes a rate of 95, sinus with no acute ST ischemic changes. Patient appears to have stuttering speech, diaphoretic, with bilateral hands and feet cramps. Appears consistent with hyperventilation associated with panic attack. No DVT/PE risk factors. Denies any tearing chest pain so doubt dissection. Will do a cardiac work-up, d-dimer, chest x-ray and give a dose of Ativan. 1415 --patient appears much more relaxed and comfortable. No longer diaphoretic. He is holding his hands bilaterally and a clenched fist. He states he still feels like he has paresthesias in his hands with chest pain and shortness of breath. Labs and imaging reviewed and unremarkable. Do not suspect any other acute cardiopulmonary etiology at this time. Will give a liter bolus, another dose of Ativan and a dose of his PRN hydroxyzine and reassess. 1620 --patient reassessed and he feels much better and he is requesting to go home. Second troponin negative. He is advised to drink plenty of fluids, get plenty of rest, follow-up with the primary care doctor for evaluation and to return here if worse. Medical Records Medical records reviewed: Yes I reviewed the patient's medical records. Imaging Data Radiologic Study: Radiologist's impression: XR CHEST 2V PA LATERAL INDICATION: chest pain, r/o acute disease. COMPARISON: XR CHEST 2V PA LATERAL from 07/08/2018 TECHNIQUE: 2D digital imaging was performed. FINDINGS: The lungs are well expanded and free of infiltrate. There is no evidence of a pleural effusion. Cardiovascular structures are intact. IMPRESSION: No evidence of acute cardiopulmonary disease. Lab Data Lab results reviewed: Yes I reviewed the patient's lab results. Labs: Laboratory Tests Range/Units 12/15/18 12/15/18 12/15/18 12:03 12:03 12:03 WBC (4.4-10.8) k/cumm 6.92 RBC (4.50-6.00) m/cumm 4.46 L Hgb (13.5-17.5) g/dL 13.8 Hct (40.0-50.0) % 39.9 L MCV (80-95) fL 89.5 MCH (27.0-33.0) pg 30.9 MCHC (32.0-36.0) g/dL 34.6 RDW (11.8-14.1) % 12.3 Plt Count (130-400) x1000/uL 266 MPV (8.0-11.0) fL 10.0 Immature Gran % 0.1 Neutrophils % 65.1 Lymphocytes % 25.0 Monocytes % 9.1 Eosinophils % 0.4 Basophils % 0.3 Absolute Neutrophils (1.2-6.7) k/cumm 4.50 Absolute Lymphocytes (1.2-3.4) k/cumm 1.73 Absolute Monocytes (0.11-0.7) k/cumm 0.63 Absolute Eosinophils (0.0-0.7) k/cumm 0.03 Absolute Basophils (0.0-0.2) k/cumm 0.02 D-Dimer (<500) ng/mlFEU 87 Sodium (136-145) mmol/L 144 Potassium (3.5-5.1) mmol/L 4.0 Chloride (98-107) mmol/L 102 Carbon Dioxide (21.0-32.0) mmol/L 27.0 Anion Gap (3-11) mmol/L 15.0 H BUN (7-18) mg/dL 21 H Creatinine (0.70-1.30) mg/dL 1.21 Estimated GFR/1.73 m2 (mL/min/1.73m2) >= 60.00 Glucose (70-100) mg/dL 95 Calcium (8.5-10.1) mg/dL 9.8 Magnesium (1.8-2.4) mg/dL 1.7 L Total Bilirubin (0.2-1.0) mg/dL 0.9 AST (15-37) U/L 10 L ALT (16-63) U/L 12 L Alkaline Phosphatase (46-116) U/L 47 Troponin I (0.00-0.06) ng/mL < 0.05 Total Protein (6.4-8.2) g/dL 8.2 Albumin (3.4-5.0) g/dL 4.6 Range/Units 12/15/18 15:41 WBC (4.4-10.8) k/cumm RBC (4.50-6.00) m/cumm Hgb (13.5-17.5) g/dL Hct (40.0-50.0) % MCV (80-95) fL MCH (27.0-33.0) pg MCHC (32.0-36.0) g/dL RDW (11.8-14.1) % Plt Count (130-400) x1000/uL MPV (8.0-11.0) fL Immature Gran % Neutrophils % Lymphocytes % Monocytes % Eosinophils % Basophils % Absolute Neutrophils (1.2-6.7) k/cumm Absolute Lymphocytes (1.2-3.4) k/cumm Absolute Monocytes (0.11-0.7) k/cumm Absolute Eosinophils (0.0-0.7) k/cumm Absolute Basophils (0.0-0.2) k/cumm D-Dimer (<500) ng/mlFEU Sodium (136-145) mmol/L Potassium (3.5-5.1) mmol/L Chloride (98-107) mmol/L Carbon Dioxide (21.0-32.0) mmol/L Anion Gap (3-11) mmol/L BUN (7-18) mg/dL Creatinine (0.70-1.30) mg/dL Estimated GFR/1.73 m2 (mL/min/1.73m2) Glucose (70-100) mg/dL Calcium (8.5-10.1) mg/dL Magnesium (1.8-2.4) mg/dL Total Bilirubin (0.2-1.0) mg/dL AST (15-37) U/L ALT (16-63) U/L Alkaline Phosphatase (46-116) U/L Troponin I (0.00-0.06) ng/mL < 0.05 Total Protein (6.4-8.2) g/dL Albumin (3.4-5.0) g/dL ECG Data Attestation: I personally reviewed and interpreted this ECG (s) as follows: Interpretation: rate of 95, sinus, no acute ST elevation or depression, NM 146, QTc 435, QRS 94. HPI General Mode of arrival: ambulatory. Date/Time Provider Initiated Documentation: 12/15/18 11:52. Limitations to Documentation: no limitations. Information obtained by: patient. HPI Narrative: Patient is a 33-year-old male with a history of hepatitis C, adjustment disorder, opioid dependence presents to the ED with a complaint of sudden onset of chest pain, shortness of breath, numbness around his lips, hands and feet that started 1 hour ago while working upstairs as an [employer]. Patient has a history of anxiety at times, adjustment disorder and states he recently started taking Ritalin and Klonopin a few months ago. He states he has hydroxyzine to take as needed but has not taken it recently. He denies any fever, vomiting, recent travel, recent surgery, leg pain or swelling, cough. He has a history of Crohn's disease but denies any acute change in his chronic symptoms associated with this. Related Data Home Medications Medication Instructions Recorded Confirmed hydroxyzine HCl 10 mg tablet 20 mg PO Q6H PRN #60 tab 06/29/18 09/12/18 adalimumab 40 mg/0.8 mL 40 mg SC Q14D #2 syringe 07/07/18 09/12/18 subcutaneous syringe kit omeprazole 40 mg capsule,delayed 40 mg PO BID #60 cap 08/08/18 12/15/18 release gabapentin 800 mg tablet 800 mg PO TID #270 tab 08/09/18 12/15/18 ondansetron 4 mg PO TID PRN 08/28/18 12/15/18 medical marijuana PO 09/12/18 09/12/18 clonazepam [Klonopin] 0.5 mg PO BID 12/15/18 12/15/18 methylphenidate HCl [Ritalin] 40 mg PO BID 12/15/18 12/15/18 Previous Rx's Medication Instructions Recorded hydroxyzine HCl 10 mg tablet 20 mg PO Q6H PRN #60 tab 06/29/18 adalimumab 40 mg/0.8 mL 40 mg SC Q14D #2 syringe 07/07/18 subcutaneous syringe kit omeprazole 40 mg capsule,delayed 40 mg PO BID #60 cap 08/08/18 release gabapentin 800 mg tablet 800 mg PO TID #270 tab 08/09/18 Allergies Allergy/AdvReac Type Severity Reaction Status Date / Time No Known Allergies Allergy Verified 12/15/18 11:55 General Stated Complaint: Chest Pain MARIA ESTHER: 2 Review of Systems Review of Systems ROS Unobtainable: All systems reviewed & are unremarkable except as noted in HPI and below Constitutional Constitutional: Reports as per HPI, Denies chills and Denies fever(s) Eyes Eyes: Denies blurry vision ENT Ears, Nose, Mouth, and Throat: Denies dizziness, Denies sore throat and Denies throat swelling Cardiovascular Cardiovascular: Reports chest pain and Reports dyspnea Respiratory Respiratory: Denies cough and Reports dyspnea Gastrointestinal Gastrointestinal: Denies abdominal pain, Denies diarrhea and Denies vomiting Genitourinary Genitourinary: Denies hematuria and Denies dysuria Musculoskeletal Musculoskeletal: Denies back pain and Denies numbness Integumentary/Breasts Skin/Breast: Denies lesions and Denies rash Neurologic Neurologic: Denies dizziness, Denies focal weakness and Denies numbness Allergic/Immunologic Allergic/Immunologic: Denies throat swelling [facility] Medical History Adjustment disorder, unspecified (Inactive 01/06/16) Crohns disease (Inactive ~03/2018) [place] [place] C antibody test positive (Inactive 09/13/16) h/o acute Hep C early 2011; not treated but Antibody positive, virus negative by 2012 Migraine without status migrainosus (Inactive 11/26/15) Opioid dependence (Inactive 10/03/14) Bupenorphine maintenance. Opioid dependence on agonist therapy (Inactive) Induced by [facility] as outpatient mid [address] Keith; transition to [facility], then [facility] 09/2014. Prior addiction since 15 y/o; injection heroin ~ 6 yrs; sobriety date 12/07/2013 Parasomnia (Inactive) Restless legs syndrome (RLS) (Inactive) Surgical History H/O colonoscopy (Resolved 02/10/18) Dr Sewell History of esophagogastroduodenoscopy (EGD) (Acute 02/10/18) Dr Sewell Family History Mother Alcohol abuse Father Substance abuse Social History Smoking/Tobacco Use Status: Former Tobacco Use Quit Date: 03/08/17 Alcohol Intake: former Drug use: Daily Substance use type: marijuana Details: prn medical rx Housing: apartment Communication Needs: None current occupation: [employer] Pets and animals: Yes (1) Pets and animals: dog(s) What type of physical activity do you participate in: none Duration: > 90 minutes/day Frequency: 3-4 times per week Working smoke detector in home: Yes Fire extinguisher in home: Yes Carbon monox detector in home: Yes Do you feel safe at home: Yes Do you feel safe in your relationship?: Yes Exam Const General: cooperative, healthy appearing and anxious Orientation: alert, awake and oriented x3 HENMT Head: normal to inspection Ears: hearing grossly normal bilaterally General nose exam: external nose normal Face and sinus: normal facial exam Mouth: oral mucosae normal Throat: posterior oropharynx normal Eyes General: appearance normal, both eyes and all related structures Pupils: PERRL EOM: EOM intact bilaterally Neck Neck: normal visual inspection and No submandibular swelling Lymphatic: no lymphadenopathy noted Chest Chest: normal inspection of the chest and no tenderness Resp Effort & Inspection: normal respiratory effort and able to speak in complete sentences Auscultation: clear to auscultation bilaterally Cardio Rate: regular rate Rhythm: regular rhythm GI Inspection: normal to inspection Palpation: soft, not firm, not rigid and nontender Auscultation: normal bowel sounds Skin General skin exam: no rashes or lesions noted Neuro General: alert, awake and oriented x3 Cognition: normal cognition Speech: abnormal speech stuttering Motor: muscle tone normal throughout and strength 5/5 throughout Sensory Exam: no sensory deficits noted Extrem General: normal to inspection, full ROM, normal capillary refill, no calf tenderness bilaterally and no edema Other: Bilateral hands in cramping position with fingers extended. Distal pulses intact bilaterally. Occasional cramping and shaking of left foot. Psych Appearance: grossly normal Mental Status: mental status grossly normal Speech and Movement: speech and movement normal Affect: normal affect Course Vital Signs Vital signs: Vital Signs Temperature 99.1 F 12/15/18 11:51 Pulse 102 H 12/15/18 11:51 Respiratory Rate 22 12/15/18 11:51 Blood Pressure 148/87 H 12/15/18 11:51 Pulse Oximetry 100 12/15/18 11:51 Temperature 99.1 F 12/15/18 11:51 Temperature Source Skin 12/15/18 11:51 Pulse 102 H 12/15/18 11:51 Respiratory Rate 22 12/15/18 11:51 Respiratory Effort 12/15/18 11:56 Blood Pressure 148/87 H 12/15/18 11:51 Pulse Oximetry 100 12/15/18 11:51 Oxygen Delivery Method Room Air 12/15/18 11:51 Oxygen Flow Rate 0 12/15/18 11:51 Pain Level 7 12/15/18 11:51 Lab/Test Results Lab/Test Results: Laboratory Tests Range/Units 12/15/18 12:03 WBC (4.4-10.8) k/cumm 6.92 RBC (4.50-6.00) m/cumm 4.46 L Hgb (13.5-17.5) g/dL 13.8 Hct (40.0-50.0) % 39.9 L MCV (80-95) fL 89.5 MCH (27.0-33.0) pg 30.9 MCHC (32.0-36.0) g/dL 34.6 RDW (11.8-14.1) % 12.3 Plt Count (130-400) x1000/uL 266 MPV (8.0-11.0) fL 10.0 Immature Gran % 0.1 Neutrophils % 65.1 Lymphocytes % 25.0 Monocytes % 9.1 Eosinophils % 0.4 Basophils % 0.3 Absolute Neutrophils (1.2-6.7) k/cumm 4.50 Absolute Lymphocytes (1.2-3.4) k/cumm 1.73 Absolute Monocytes (0.11-0.7) k/cumm 0.63 Absolute Eosinophils (0.0-0.7) k/cumm 0.03 Absolute Basophils (0.0-0.2) k/cumm 0.02
[2018-12-15] MEDS: LORazepam 2 MG/ML VIAL (12:31)
[2018-12-15 12:36] LABS: ALT 12 U/L (16-63); AST 10 U/L (15-37); Albumin 4.6 g/dL (3.4-5.0); Alkaline Phosphatase 47 U/L (46-116); BUN 21 mg/dL (7-18); Bilirubin, Total 0.9 mg/dL (0.2-1.0); CREATININE 1.21 mg/dL (0.70-1.30); Calcium 9.8 mg/dL (8.5-10.1); Chloride 102 mmol/L (98-107); Glucose 95 mg/dL (70-100); Magnesium 1.7 mg/dL (1.8-2.4); Sodium 144 mmol/L (136-145); Total Protein 8.2 g/dL (6.4-8.2)
[2018-12-15 12:40] LABS: Troponin I < 0.05 ng/mL (0.00-0.06)
[2018-12-15 12:49] LABS: D-Dimer 87 ng/mlFEU (<500)
[2018-12-15] MEDS: LORazepam 2 MG/ML VIAL 0.5 MG IVP (14:30)
[2018-12-15] MEDS: hydrOXYzine HCL 25 MG TAB PO (14:31)
[2018-12-15] MEDS: Normal Saline 1,000 ML 1000 ML IV (14:31)
[2018-12-15 16:16] LABS: Troponin I < 0.05 ng/mL (0.00-0.06)
== END 2018-12-15 16:45 | disposition home or self-care (01) ==
PROVIDERS: Emergency Provider Physician Assistant; PCP Nurse Practitioner
DX: F41.9 Anxiety disorder, unspecified (principal)
CPT/HCPCS: 36415; 36416; 80053; 82962; 93005; 99285; 71046; 83735; 84484; 85025; 85379; 93010; J2060

== ENCOUNTER 2018-12-25 02:17 | Outpatient (CLI) | payer OTHER, SELFPAY ==
--- NOTE | 2018-12-25 10:00 | NS.NUTBLAN_ITS ---
DESCRIPTION: Oskar Cruz presents for medical nutrition therapy for Crohns Disease. He reports a 60 pound weight loss since pain started and he became afraid to eat. He reports living off ensure 3/day recently. He is also able to drink milk and hard cheese. He is highly aware of the foods that bother him. He experiences pain, discomfort, nausea, phlegm. He has tried to attend appointments [place] [facility] [place] but has had difficulty with this. He is experiencing low energy. INTERVENTION: Reviewed food guide for Crohn's disease and he is able to identify the foods that work and do not work from these lists. He has basically done an elimination diet and will add foods back one at a time. He will document all food and symptoms in a notebook. PLAN: Oskar will begin cooking meats using moist methods; he will choose well cooked vegetables without skins or seeds; adding fruit cocktail. Oskar will return in 2 weeks for follow up.
== END 2018-12-25 02:37 ==
PROVIDERS: PCP Nurse Practitioner; Visit Provider Dietitian, Registered
DX: K50.90 Crohn's disease, unspecified, without complications (principal); Z71.3 Dietary counseling and surveillance
CPT/HCPCS: 97802

== ENCOUNTER 2019-01-03 16:24 | Outpatient (CLI) | payer OTHER, SELFPAY ==
[2019-01-03 18:20] LABS: TSH (W/Ref FT4) 1.01 uIU/mL (0.36-3.74)
== END 2019-01-03 16:44 ==
PROVIDERS: PCP Nurse Practitioner; Visit Provider Nurse Practitioner
DX: R63.4 Abnormal weight loss (principal)
CPT/HCPCS: 36415; 84443

== ENCOUNTER 2019-01-04 02:44 | Outpatient (CLI) | payer OTHER, SELFPAY ==
--- NOTE | 2019-01-04 10:05 | NS.NUTBLAN_ITS ---
DESCRIPTION/ASSESSMENT: Oskar Cruz presents for nutrition follow up for Crohn's disease.? He reports having lost another 4 pounds over the past week.? He reports feeling anxious and depressed.?He sleeps many hours and never feels rested.He wonders if he has thyroid involvement. He is waiting for [facility] to help him.? He reports he continues to have many unanswered questions. He takes Ritalin which he says also helps with his loose bowels. Oskar did trial a few of the suggested foods and found that he can not eat crackers but can eat white bread. He was able to tolerate some meat, tuna with relish, and steamed carrots, but was intolerant to crackers.? He can eat bananas. He finds he can eat the cafeteria omelet eggs but not eggs from home. He is drinking 3 Ensure a day plus the solid food when he feels he is not scared to eat. NUTRITIONAL DIAGNOSIS: Inadequate calorie and nutrient intake and unintentional weight loss secondary to intolerance of many foods resulting in vomiting, diarrhea, constipation, stomach pain. INTERVENTION: Discussed food choices and what he sees he can tolerate and not tolerate. Given that he expresses an inability to try many new things secondary to his potential multiple co-morbidities and that he is awaiting more tests, results and consultations, attempted to develop a plan to ensure eating more of his safe foods, and trying new real food options. He is given 1 quart of liquid eggs and 1 package of vanilla [place] Instant Breakfast to try at home. PLAN: He will attempt to eat tolerated foods at least once daily in addition to supplements. He will call with any desire for follow up.
== END 2019-01-04 03:04 ==
PROVIDERS: PCP Nurse Practitioner; Visit Provider Dietitian, Registered
DX: K50.90 Crohn's disease, unspecified, without complications (principal); R63.4 Abnormal weight loss; Z71.3 Dietary counseling and surveillance
CPT/HCPCS: 97803

== ENCOUNTER 2019-08-17 04:07 | Outpatient (CLI) | payer MEDICAID, SELFPAY ==
[2019-08-17 13:20] LABS: Abs Immature Grans 0.01 k/cumm (0.0-0.09); Absolute Basophil Count 0.02 k/cumm (0.0-0.2); Absolute Eosinophil Count 0.16 k/cumm (0.0-0.7); Absolute Monocyte Count 0.47 k/cumm (0.11-0.7); Absolute Neutrophil Count 3.53 k/cumm (1.2-6.7); Basophils % 0.3; Eosinophils % 2.6; HCT 39.3 % (40.0-50.0); HGB 13.6 g/dL (13.5-17.5); Immature Grans % 0.2 %; Lymphocytes % 32.3; Mean Corp. HGB Concentration 34.6 g/dL (32.0-36.0); Mean Corpuscular Hemoglobin 31.7 pg (27.0-33.0); Mean Corpuscular Volume 91.6 fL (80-95); Mean Platelet Volume 10.4 fL (8.0-11.0); Monocytes % 7.6; Platelet Count 250 x1000/uL (130-400); RBC 4.29 m/cumm (4.50-6.00); RBC Distribution Width 12.4 % (11.8-14.1); White Blood Cell Count 6.19 k/cumm (4.4-10.8)
[2019-08-17 14:00] LABS: ALT 20 U/L (16-63); AST 11 U/L (15-37); Albumin 4.3 g/dL (3.4-5.0); Alkaline Phosphatase 47 U/L (46-116); Anion Gap 9.2 mmol/L (3-11); BUN 25 mg/dL (7-18); Bilirubin, Total 0.5 mg/dL (0.2-1.0); CO2 27.8 mmol/L (21.0-32.0); Calcium 9.3 mg/dL (8.5-10.1); Chloride 103 mmol/L (98-107); Glucose 93 mg/dL (74-106); Sodium 140 mmol/L (136-145); Total Protein 7.5 g/dL (6.4-8.2)
[2019-08-21 11:47] LABS: Adalimumab QN with Reflex Ab 8.5 mcg/mL
== END 2019-08-17 04:27 ==
PROVIDERS: PCP Nurse Practitioner; Visit Provider Internal Medicine Gastroenterology
DX: K50.00 Crohn's disease of small intestine without complications (principal)
CPT/HCPCS: 36415; 80053; 83520; 85025; 86140